=== PATIENT | male | born 1955 | race Caucasian/White ===

== ENCOUNTER → 2016-08-10 | Day surgery (SDC) | payer BC ==
[2016-08-02 09:48] VITALS: BMI 39.0
--- NOTE | 2016-08-02 10:11 | PAT Medication Instructions ---
Service Date Aug 02, 2016. Current Home Medication List Cholecalciferol (Vitamin D 1000 Unit), 1,000 INTER.UNIT PO QAM Doxazosin Mesylate (Doxazosin Mesylate), 8 MG PO QPM Ferrous Sulfate (Iron Supplement), 1 TAB PO HS Hydroxyzine Pamoate (Vistaril), 25 MG PO HS Omeprazole (Prilosec), 20 MG PO QAM Paroxetine (Paxil), 20 MG PO QAM Medication Instructions For Your Scheduled Surgery - Hold the following medications the morning of surgery: Cholecalciferol (Vitamin D 1000 Unit), 1,000 INTER.UNIT PO QAM - Take the following medications the morning of surgery with a sip of water OTHERWISE NOTHING TO EAT OR DRINK AFTER MIDNIGHT: Omeprazole (Prilosec), 20 MG PO QAM Paroxetine (Paxil), 20 MG PO QAM - Take the following medications as scheduled the night before surgery: Doxazosin Mesylate (Doxazosin Mesylate), 8 MG PO QPM Ferrous Sulfate (Iron Supplement), 1 TAB PO HS Hydroxyzine Pamoate (Vistaril), 25 MG PO HS If you have any questions please call us at [phone] (Trudi Rodrigues PA-C) or [phone] or [phone]
[2016-08-02 10:41] LABS: BASO % 0.6 %; BASO ABS # 0.03 K/uL (0-0.2); COMPLETE YES; EOS % 7.7 %; HEMATOCRIT 39.5 % (42-52); IG% 0.4 %; LYMPH ABS # 1.35 K/uL (1.2-3.4); MEAN CELL VOLUME 89.4 fL (80-100); MEAN CORPUSCULAR HEMOGLOBIN 30.5 pg (25-34); MEAN CORPUSCULAR HGB CONC 34.2 g/dl (32-36); MEAN PLATELET VOLUME 9.7 fL (7.4-10.4); MONO % 13.1 %; NEUT % 50.2 %; PLATELET COUNT 207 K/uL (130-400); RED BLOOD COUNT 4.42 M/uL (4.7-6.1); WHITE BLOOD COUNT 4.82 K/uL (4.8-10.8)
[2016-08-02 10:49] LABS: PROTHROMBIN TIME (PATIENT) 10.2 SECONDS (9.0-12.0)
[2016-08-02 11:26] LABS: BUN/CREATININE RATIO 15.6 (10-20); CALCIUM 9.7 mg/dl (8.5-10.1); CREATININE 1.6 mg/dl (0.60-1.40); POTASSIUM 4.4 mmol/L (3.5-5.1)
[~2016-08-10] VITALS: Ht 182.9 cm; Wt 131.0 kg
[~2016-08-10] MED LIST: ATROPINE SULFATE 0.1 MG/ML 5ML SYR IV PRN; BUPIVACAINE/EPINEPHRINE 0.5% MPF 1:200,000 30 ML VIAL INJ ONE; CEFAZOLIN 3000 MG/65 ML D5W IV SCH; CHOL100027 PO; DEXAMETHASONE SOD INJ 4 MG/ML VIAL ONE; DOXA-10 PO; EpHEDrine SULFATE INJ 50 MG/ML AMP IV PRN; EpHEDrine SULFATE INJ 50 MG/ML AMP ONE; FENTANYL CITRATE INJ 50 MCG/1 ML 2 ML VIAL ONE; FERR325T51 PO; HEPARIN SOD 5000 UNIT/0.5 ML CARP SQ SCH; HYDR-5688 PO; HYDR1CAP85 PO; HYDROCODONE/ACETAMOPHEN 5/325MG TAB PO PRN; IBUPROFEN 600 MG TAB PO PRN; KETOROLAC TROMETHAMINE 30 MG/ML VIAL IV. PRN; KETOROLAC TROMETHAMINE 30 MG/ML VIAL ONE; LABETALOL HCL IV 5 MG/ML 20ML IV PRN; LABETALOL HCL IV 5 MG/ML 20ML ONE; LACTATED RINGER'S 1000ML 1,000 ML IV SCH; LIDOCAINE HCL 2% 2 ML VIAL (20MG/ML) ONE; MIDAZOLAM HCL 1 MG/ML 2ML VIAL ONE; MoRPHine SULFATE 10 MG/ML CARP/VIAL IV PRN; MoRPHine SULFATE 4 MG/ML 1 ML CARP\\VIAL IV PRN; NURSING VERBAL MED ORDER ONE; ONDANSETRON INJ 2 MG/ML 2 ML VIAL IV PRN; ONDANSETRON INJ 2 MG/ML 2 ML VIAL ONE; PARO1TAB27 PO; PHENYLEPHRINE 100MCG/ML 5ML SYR ONE; PRLSR20 PO; PROPOFOL IV EMULSION 10 MG/ML 20 ML VIAL IV ONE; SODIUM CHLORIDE 0.9% 1000ML 1,000 ML IV SCH
[2016-08-10 10:03] VITALS: BP 160/89; PULSE 77; TEMP 36.7; O2SAT 96; Ht 182.9 cm; Wt 131.0 kg
--- NOTE | 2016-08-10 11:22 | History & Physical Bridge Note ---
H&P Re-Evaluation Bridge Note: I have examined the patient, reviewed the History & Physical and in the interval since the performance of the History & Physical I have noted the following changes of clinical significance: No changes noted
--- NOTE | 2016-08-10 11:25 | Discharge Instructions ---
Discharge Instructions Admission Reason for Admission: Left Inguinal Hernia Discharge Discharge Diagnosis / Problem: left inguinal hernia Discharge Goals Goal(s): Decrease discomfort, Improve function Activity Recommendations Activity Limitations: as noted below Lifting Limitations: no more than 10 pounds Exercise/Sports Limitations: until after follow-up appointment May Resume Sexual Activity: after follow-up appointment Shower/Bathe: tomorrow . Instructions / Follow-Up Instructions / Follow-Up f/u Dr. Silvestre 1-2 weeks. Current Hospital Diet Patient's current hospital diet: Discharge Diet Recommended Diet: Regular Diet Pending Studies Studies pending at discharge: no Medical Emergencies . Who to Call and When: Medical Emergencies: If at any time you feel your situation is an emergency, please call 911 immediately. . Non-Emergent Contact Non-Emergency issues call your: Primary Care Provider, Surgeon Call Non-Emergent contact if: temperature is above 101, wound has increased drainage, wound has increased redness, wound has increased pain . "Provider Documentation" section prepared by Demond Silvestre. VTE Core Measure Inpt VTE Proph given/why not?: Unfractionated heparin SQ
--- NOTE | 2016-08-10 13:06 | [facility] Operative Report ---
Operative Report Operative Date Aug 10, 2016. Pre-Operative Diagnosis Left Inguinal Hernia Post-Operative Diagnosis indirect left inguinal hernia Surgeon Dr Silvestre Findings indirect left inguinal hernia Specimens None Complication(s) None Disposition Recovery Room / PACU I attest to the content of the Intraoperative Record and any orders documented therein. Any exceptions are noted below.
[2016-08-10] MEDS: FENTANYL CITRATE INJ 50 MCG/1 ML 2 ML VIAL IV PRN ×3 (13:16→13:26)
--- NOTE | 2016-08-10 13:24 | Anesthesiology Progress Note ---
Anesthesia Post Op Note Date & Time Aug 10, 2016 at 13:24 Vital Signs Pain Intensity: 0 Vital Signs Past 12 Hours Date Time Temp Pulse Resp B/P Pulse Ox O2 Delivery O2 Flow Rate FiO2 08/10/16 10:03 36.7 77 18 160/89 96 Room Air Notes Mental Status: alert / awake / arousable, participated in evaluation Pt Amnestic to Procedure: Yes Nausea / Vomiting: adequately controlled Pain: adequately controlled Airway Patency, RR, SpO2: stable & adequate BP & HR: stable & adequate Hydration State: stable & adequate Anesthetic Complications: no major complications apparent
--- NOTE | 2016-08-10 13:32 | OPERATIVE REPORT ---
DATE OF OPERATION: 08/10/2016 PREOPERATIVE DIAGNOSIS: Left inguinal hernia. POSTOPERATIVE DIAGNOSIS: Indirect left inguinal hernia. PROCEDURE: Open left inguinal hernia repair with mesh. SURGEON: Dr. Silvestre. ESTIMATED BLOOD LOSS: 10 mL. COMPLICATIONS: No immediate. ANESTHESIA: General with laryngeal mask airway. The patient tolerated the procedure well. OPERATION AND FINDINGS: OPERATIVE NOTE: After informed consent was obtained, the patient was taken to the operating suite and placed in supine position. After successful placement of laryngeal mask airway a Diallo catheter was placed and the left groin was shaved and sterilely prepped and draped in usual fashion. An inguinal incision was made in the left groin with a 10 blade scalpel. This was carried down through the soft tissue using electrocautery. The external oblique aponeurosis was skeletonized and opened with a fresh scalpel. Metzenbaum scissors were used to extend this incision distally through the external ring as well as for several centimeters proximally. Once in the inguinal canal, we used blunt dissection to separate the cord and cord structures from surrounding tissue. I was able to gently lift it off the pubes and place a [place] drain around it. We then began examining the cord and cord structures. There was a large chronic thickened hernia sac. We were able to use traction, counter traction as well as small amount of electrocautery to tease it away from the cord structures. Eventually we were able to get it the whole way down to its neck at the base of the cord. We were able to easily dunk it into the abdominal cavity where it stayed self reduced. There was no evidence of a direct hernia. No other abnormalities were seen. We thoroughly irrigated the wound. I used a piece of polypropylene pre-keyholed mesh as an onlay. It was secured distally to Stephan's ligament, laterally along the shelving portion of Poupart's ligament and medially along the midline abdominal musculature. The "arms" of the mesh were wrapped around behind the cord and cord structures and again secured to underlying muscle. All the sutures placed I used 0 Nurolon. The mesh hugged the cord structures, but did not impinge on them. There was adequate hemostasis at the end of the procedure. Marcaine was injected around the mesh to help with postoperative analgesia. Final irrigation was performed. The mesh was tension free. We then closed the external oblique aponeurosis with 2-0 Vicryl in a running fashion. Soft tissue was irrigated and closed using 3-0 Vicryl and 4-0 Monocryl. Some additional Marcaine was injected around the skin. Dermabond glue was used as a dressing. The patient was awakened, extubated, and transferred to recovery in stable condition. I attest to the content of the Intraoperative Record and any orders documented therein. Any exceptio ns are noted below.
[2016-08-10 13:55] VITALS: BP 126/76; PULSE 66; TEMP 36.5; O2SAT 95
[2016-08-10 14:25] VITALS: BP 136/87; PULSE 80; TEMP 36.5; O2SAT 94
[2016-08-10 14:55] VITALS: BP 127/82; PULSE 82; TEMP 36.4; O2SAT 93
== END | disposition home or self-care (01) ==
LOC: C.ACU 09:45
PROVIDERS: ATTEND Surgery
DX: K40.90 Unilateral inguinal hernia, without obstruction or gangrene, not specified as recurrent (principal); K21.9 Gastro-esophageal reflux disease without esophagitis; N17.9 Acute kidney failure, unspecified; D64.9 Anemia, unspecified; L57.0 Actinic keratosis; G56.01 Carpal tunnel syndrome, right upper limb; N18.3 Chronic kidney disease, stage 3 (moderate); F32.9 Major depressive disorder, single episode, unspecified; I10 Essential (primary) hypertension; E66.9 Obesity, unspecified; E55.9 Vitamin D deficiency, unspecified; N31.8 Other neuromuscular dysfunction of bladder; G56.81 Other specified mononeuropathies of right upper limb; I83.10 Varicose veins of unspecified lower extremity with inflammation

== ENCOUNTER 2017-05-02 11:47 | Emergency (ER) | payer BC, OTHER ==
[~2017-05-02] VITALS: Ht 182.9 cm; Wt 136.5 kg
[~2017-05-02 11:47] MED LIST changes: -ATROPINE SULFATE 0.1 MG/ML 5ML SYR IV PRN; -BUPIVACAINE/EPINEPHRINE 0.5% MPF 1:200,000 30 ML VIAL INJ ONE; -CEFAZOLIN 3000 MG/65 ML D5W IV SCH; -DEXAMETHASONE SOD INJ 4 MG/ML VIAL ONE; -EpHEDrine SULFATE INJ 50 MG/ML AMP IV PRN; -EpHEDrine SULFATE INJ 50 MG/ML AMP ONE; -FENTANYL CITRATE INJ 50 MCG/1 ML 2 ML VIAL ONE; -HEPARIN SOD 5000 UNIT/0.5 ML CARP SQ SCH; -HYDR-5688 PO; -HYDROCODONE/ACETAMOPHEN 5/325MG TAB PO PRN; -IBUPROFEN 600 MG TAB PO PRN; -KETOROLAC TROMETHAMINE 30 MG/ML VIAL IV. PRN; -KETOROLAC TROMETHAMINE 30 MG/ML VIAL ONE; -LABETALOL HCL IV 5 MG/ML 20ML IV PRN; -LABETALOL HCL IV 5 MG/ML 20ML ONE; -LACTATED RINGER'S 1000ML 1,000 ML IV SCH; -LIDOCAINE HCL 2% 2 ML VIAL (20MG/ML) ONE; -MIDAZOLAM HCL 1 MG/ML 2ML VIAL ONE; -MoRPHine SULFATE 10 MG/ML CARP/VIAL IV PRN; -MoRPHine SULFATE 4 MG/ML 1 ML CARP\\VIAL IV PRN; -NURSING VERBAL MED ORDER ONE; -ONDANSETRON INJ 2 MG/ML 2 ML VIAL IV PRN; -ONDANSETRON INJ 2 MG/ML 2 ML VIAL ONE; -PHENYLEPHRINE 100MCG/ML 5ML SYR ONE; -PROPOFOL IV EMULSION 10 MG/ML 20 ML VIAL IV ONE; -SODIUM CHLORIDE 0.9% 1000ML 1,000 ML IV SCH
[2017-05-02 11:52] VITALS: TEMP 37; Ht 182.9 cm; Wt 136.5 kg
--- NOTE | 2017-05-02 12:41 | DIAGNOSTIC IMAGING REPORT ---
R SHOULDER MIN 2 VIEWS ROUTINE CLINICAL HISTORY: 61 years-old Male presenting with Right shoulder pain. TECHNIQUE: Internal rotation, external rotation, and Grashey views of the right shoulder were obtained. COMPARISON: 10/12/2014. FINDINGS: Total right shoulder arthroplasty. No malalignment or subluxation. No fracture. Few osseous fragments likely relate to the presence of prior osteophytosis. Regional soft tissues otherwise normal. Acromioclavicular joint congruent. IMPRESSION: Expected postoperative appearance status post total right shoulder arthroplasty. Electronically signed by: Riccardo Sierra M.D. 05/02/2017 12:40 PM Dictated Date/Time: 05/02/2017 12:37 PM
--- NOTE | 2017-05-02 12:50 | EMERGENCY ROOM VISIT NOTE ---
History First contact with patient: 11:59 Chief Complaint: SHOULDER PAIN Stated Complaint: SHOULDER PAIN History of Present Illness The patient is a 61 year old male who presents to the Emergency Room via private vehicle with complaints of "right shoulder pain". The patient states that about one week ago, he was operating a push/pull start a lawnmower, and shortly thereafter developed right shoulder pain. He has a history of right shoulder surgery/prosthetic implantation in this region, which was performed 2 years ago. This has been persistent over the past week, and is worse with movements. He rates the pain as a 6/10. He denies chest pain and shortness of breath. Review of Systems A complete 6-point Review of Systems was discussed with the patient, with pertinent positives and negatives listed in the History of Present Illness. All remaining Review of Systems questions can be considered negative unless otherwise specified. Past Medical/Surgical History Surgical Problems: (1) History of right shoulder replacement Family History No pertinent family history Social History Smoking Status: Never Smoker Drug Use: none Marital Status: Housing Status: lives with family Occupation Status: employed Current/Historical Medications Scheduled Cholecalciferol (Vitamin D 1000 Unit), 1,000 INTER.UNIT PO QAM Doxazosin Mesylate (Doxazosin Mesylate), 8 MG PO QPM Ferrous Sulfate (Iron Supplement), 1 TAB PO HS Hydroxyzine Pamoate (Vistaril), 25 MG PO HS Omeprazole (Prilosec), 20 MG PO QAM Paroxetine (Paxil), 20 MG PO QAM Allergies Coded Allergies: Alprazolam (Verified Allergy, Unknown, hives, 05/02/17) Physical Exam Vital Signs Date Time Temp Pulse Resp B/P (MAP) Pulse Ox O2 Delivery O2 Flow Rate FiO2 05/02/17 12:16 88 16 146/102 98 Room Air 05/02/17 11:52 37.0 72 20 168/109 98 Room Air Physical Exam VITAL SIGNS - Vital signs and nursing notes were reviewed. Stable. Hypertensive. GENERAL -61-year-old male appearing his stated age who is in no acute distress. Communicates well with provider and answers questions appropriately. SKIN - Without rashes. No petechial rashes. HEAD - NC/AT. NECK - Neck with FROM. Non-tender to palpation in regard to the right trapezius muscle. LUNGS - Chest wall symmetric without accessory muscle use, intercostals retractions, or central cyanosis. Normal vesicular breath sounds CTA B/L. No wheezes, rales, or rhonchi appreciated. CARDIAC - RRR with S1/S2. No murmur, rubs, or gallops appreciated. EXTREMITIES - No clubbing or peripheral cyanosis. No pretibial edema present. There is no tenderness to palpation overlying the right shoulder. Crepitus noted with passive range of motion of the patient's right shoulder. Decreased range of motion with external and internal rotation. An abduction. Pain is reproducible with range of motion. He is neurovascularly intact in this region. +5/5 strength noted in UE/LE bilaterally. Medical Decision & Procedures ER Provider Diagnostic Interpretation: R SHOULDER MIN 2 VIEWS ROUTINE CLINICAL HISTORY: 61 years-old Male presenting with Right shoulder pain. TECHNIQUE: Internal rotation, external rotation, and Grashey views of the right shoulder were obtained. COMPARISON: 10/12/2014. FINDINGS: Total right shoulder arthroplasty. No malalignment or subluxation. No fracture. Few osseous fragments likely relate to the presence of prior osteophytosis. Regional soft tissues otherwise normal. Acromioclavicular joint congruent. IMPRESSION: Expected postoperative appearance status post total right shoulder arthroplasty. Electronically signed by: Riccardo Sierra M.D. 05/02/2017 12:40 PM Dictated Date/Time: 05/02/2017 12:37 PM Medical Decision Patient was seen and evaluated as above. He presents to us today with 1 week of right shoulder pain and crepitus of the right shoulder joint. This is prosthetic. There is no chest pain or shortness of breath. X-ray was obtained with results as above. He declined pain medication. Ice packs were given. X- rays negative for acute process. He was informed upon the results and notes that he will follow-up with his orthopedic surgeon. He is to utilize conservative management with the shoulder. He is to return with worsening. He was educated upon management, educated upon worrisome symptoms in which to return, had questions answered prior to discharge, and was discharged home in good condition. He is to follow with his family doctor to have the blood pressure rechecked as it was elevated today. In the evaluation and treatment of this patient, the following differential diagnoses were considered: Shoulder Contusion, Shoulder Fracture, Shoulder Dislocation, Thoracic Outlet Syndrome, Adhesive Capsulitis, Rotator Cuff Tear, Proximal Clavicle Head Fracture, Apical Pneumonia, Pneumothorax, Hemothorax, or TB. Impression Primary Impression: Shoulder pain, right Departure Information Dispostion Home / Self-Care Condition GOOD Referrals Juan Carlos Vital M.D. (PCP) Patient Instructions My [facility] Additional Instructions You have been treated in the Emergency Department for Shoulder Pain. If this is a recent injury (<24 hrs), ice can be applied to the area of pain for the first 3 days to help decrease pain and inflammation. Please call your orthopedic surgeon to ensure that you follow-up in the near future. You may use your sling periodically for comfort but be careful of frozen shoulder as we discussed. Please return with any new/concerning symptoms. Return to the Emergency Department if your current symptoms worsen despite treatment course outlined above, or if you develop any of the following symptoms : intractable pain despite aforementioned treatment course or new onset of numbness or tingling of the arm.
[2017-05-02 13:05] VITALS: BP 146/98; PULSE 67; O2SAT 96
== END 2017-05-02 13:07 | disposition home or self-care (01) ==
LOC: C.EDB 11:48 → C.EDD 13:07
DX: M25.511 Pain in right shoulder (principal); Z96.698 Presence of other orthopedic joint implants; Z79.899 Other long term (current) drug therapy

== ENCOUNTER → 2017-05-30 | Outpatient (CLI) | payer BC ==
--- NOTE | 2017-05-30 11:59 | DIAGNOSTIC IMAGING REPORT ---
R VENOUS DOPP LOWER EXT UNILAT CLINICAL HISTORY: RIGHT LEG PAIN AND SWELLING pain. Edema. TECHNIQUE: Venous Doppler COMPARISON STUDY: None FINDINGS: Study is negative for deep venous thrombosis. Superficial thrombophlebitis is noted within several superficial vessels of the right mid thigh. IMPRESSION: 1. Study is negative for deep venous process. 2. Focal superficial thrombophlebitis right mid thigh. The above report was generated using voice recognition software. It may contain grammatical, syntax or spelling errors. Electronically signed by: Terence Anne M.D. 05/30/2017 11:58 AM Dictated Date/Time: 05/30/2017 11:57 AM
== END | disposition home or self-care (01) ==
LOC: C.ULTR 10:43
PROVIDERS: ATTEND Family Medicine
DX: I80.01 Phlebitis and thrombophlebitis of superficial vessels of right lower extremity (principal)

== ENCOUNTER → 2017-06-12 | Outpatient (CLI) | payer BC ==
[~2017-06-12] MED LIST changes: +ACET-1256 PO; +ASPI81TA28 PO; +ATR25 PO; +CEFA500C PO; +CHOL20007 PO; +DOCU100C31 PO; +GABA1CAP4 PO; +HYDR2TAB2 PO; +OMEP20CA9 PO; +PXL20 PO; +RIVA1TAB4 PO; +SENN-61 PO; +XRL15 PO
== END | disposition home or self-care (01) ==
LOC: C.CPL 10:50
PROVIDERS: ATTEND Physician Assistant
DX: Z01.818 Encounter for other preprocedural examination (principal)

== ENCOUNTER 2017-06-27 14:38 | Inpatient (IN) | payer BC ==
[~2017-06-27] VITALS: Ht 182.9 cm; Wt 140.1 kg
[~2017-06-27 14:38] MED LIST changes: -ACET-1256 PO; -ASPI81TA28 PO; -ATR25 PO; -CEFA500C PO; -CHOL20007 PO; -DOCU100C31 PO; -GABA1CAP4 PO; -HYDR2TAB2 PO; -OMEP20CA9 PO; -PXL20 PO; -RIVA1TAB4 PO; -SENN-61 PO; -XRL15 PO
--- NOTE | 2017-06-27 15:17 | EMERGENCY ROOM VISIT NOTE ---
History Report prepared by Gabino: Fred Mack Under the Supervision of: Dr. Parish Fierro M.D. First contact with patient: 15:00 Chief Complaint: SHORTNESS OF BREATH Stated Complaint: SOB, S/P SURGERY History of Present Illness The patient is a 61 year old male who presents to the Emergency Room with complaints of SOB that started 2 days ago. He had a total shoulder replacement surgery 2 days ago ([facility], [place], [place] with Dr. Cain Walter). Of note, he has a pain pump on his right shoulder. He has been unable to walk without feeling short of breath after being discharged from the hospital. He reports his shoulder pain has improved from yesterday. He denies chest pain and swelling in his legs. He has no history of COPD, asthma, and sleep apnea but does have stage 3 kidney disease. He also has a surgical history of hip replacement, hernia repair, shoulder replacement. Source of History: patient, spouse/significant other Onset: 2 days ago Position: shoulder (right) Quality: other (shortness of breath) Timing: constant Modifying Factors (Worsening): movement (walking) Associated Symptoms: + SOB, No chest pain Note: No swelling in lower extremities Review of Systems See HPI for pertinent positives and negatives. A total of ten systems were reviewed and were otherwise negative. Past Medical & Surgical Medical Problems: (1) acute melva PE Surgical Problems: (1) History of right shoulder replacement Family History No pertinent family history Social History Smoking Status: Never Smoker Drug Use: none Marital Status: Housing Status: lives with family Occupation Status: employed Current/Historical Medications Scheduled Aspirin (Aspirin Ec), 81 MG PO DAILY Cefadroxil (Cefadroxil), 500 MG PO Q12 Cholecalciferol (Vitamin D3), 2,000 INTER.UNIT PO DAILY Doxazosin Mesylate (Doxazosin Mesylate), 8 MG PO HS Gabapentin (Gabapentin), 300 MG PO Q12 Hydroxyzine HCl (Hydroxyzine HCl), 25 MG PO HS Omeprazole (Prilosec), 20 MG PO DAILY Paroxetine (Paroxetine HCl), 20 MG PO DAILY Scheduled PRN Acetaminophen (Tylenol), 1,000 MG PO Q8 PRN for Pain Docusate Sodium (Docusate Sodium), 100 MG PO BID PRN for Constipation Hydromorphone Hcl (Hydromorphone Hcl), 2-4 MG PO Q6H PRN for Moderate/Severe Pain Senna (Senokot), 8.6 MG PO Q12 PRN for Constipation Allergies Coded Allergies: Alprazolam (Verified Allergy, Unknown, hives, 05/02/17) Physical Exam Vital Signs Date Time Temp Pulse Resp B/P (MAP) Pulse Ox O2 Delivery O2 Flow Rate FiO2 06/27/17 18:25 114 18 182/107 94 Nasal Cannula 2.0 06/27/17 16:25 101 20 118/80 93 Nasal Cannula 2.0 06/27/17 16:19 104 06/27/17 15:38 92 Room Air 06/27/17 15:00 93 Room Air 06/27/17 14:42 37.1 128 20 128/86 93 Room Air Physical Exam GENERAL: Awake, alert, dyspneic-appearing, in no distress HENT: Normocephalic, atraumatic. Oropharynx unremarkable. EYES: Normal conjunctiva. Sclera non-icteric. NECK: Supple. No nuchal rigidity. FROM. No JVD. RESPIRATORY: Clear to auscultation. CARDIAC: Sinus tachycardiac, normal rhythm. Extremities warm and well perfused. Pulses equal. ABDOMEN: Obese, soft, non-distended. No tenderness to palpation. No rebound or guarding. No masses. RECTAL: Deferred. MUSCULOSKELETAL: Chest examination reveals no tenderness. The back is symmetrical on inspection without obvious abnormality. There is no CVA tenderness to palpation. No joint edema. Right total shoulder dressing is clean , dry, and intact. Fusion pump in right lateral neck area is clean, dry, and in tact LOWER EXTREMITIES: Calves are equal size bilaterally and non-tender. Scant edema. No discoloration. NEURO: Normal sensorium. No sensory or motor deficits noted. SKIN: No rash or jaundice noted. Medical Decision & Procedures ER Provider Diagnostic Interpretation: Radiology results as stated below per my review and radiologist interpretation: CHEST ONE VIEW PORTABLE CLINICAL HISTORY: Atypical chest pain COMPARISON STUDY: 05/06/2013 FINDINGS: The heart is the upper limits of normal in size. There is no failure. There are linear opacities the left lung base likely representing subsegmental atelectasis. There are right perihilar airspace opacities, atelectatic versus infectious/inflammatory. Clinical and radiographic follow-up is recommended.[ IMPRESSION: 1. No evidence of failure 2. Interval development of right perihilar airspace opacities, atelectatic versus infectious/inflammatory. Clinical and radiographic follow-up is recommended Electronically signed by: Yash Walker M.D. 06/27/2017 3:[address] ANGIOGRAM OF THE CHEST CLINICAL HISTORY: Elevated d-dimer. Recent surgery. COMPARISON STUDY: Chest x-ray dated 06/27/2017. TECHNIQUE: Following the IV administration of 93 cc of Optiray 320, CT angiogram of the chest was performed from the upper abdomen to the thoracic inlet utilizing the pulmonary embolus protocol. Images are reviewed in the axial, sagittal, and coronal planes. 3-D MIPS images are created and assessed. IV contrast was administered without complication. A dose lowering technique was utilized adhering to the principles of ALARA. The examination is degraded by motion artifact, as well as by streak artifact from the right arm which could not be elevated above the chest. FINDINGS: Thyroid: Imaged portions of the thyroid gland are normal in size and attenuation. Thoracic aorta: The thoracic aorta is normal in caliber and demonstrates standard 3-vessel arch anatomy. No dissection is seen. Pulmonary vasculature: The pulmonary trunk is normal in caliber. There our filling defects identified within the right middle lobe pulmonary artery extending into the segmental and subsegmental branches. This is best seen on image #197. There are also filling defects identified within segmental and subsegmental branches of the left lower lobe pulmonary artery. These are consistent with pulmonary emboli. Heart: The heart is enlarged and without pericardial effusion. The coronary arteries are densely calcified. Lungs and pleural spaces: Evaluation of lung parenchyma is degraded by motion artifact. Emphysema is suspected. There is segmental atelectasis identified in the right lower lobe. A small right pleural effusion is noted. There is left basilar atelectasis related to the large hiatal hernia. No airspace consolidation is seen typical for pneumonia a calcified granuloma seen in the right lower lobe. The trachea is patent. Mediastinum: There is no mediastinal lymphadenopathy. Madison: Clear. Axillae: There is no axillary lymphadenopathy. Upper abdomen: A nonobstructing calculus is identified in the left kidney. There is a moderate to large hiatal hernia. Skeletal structures: The skeletal structures are osteopenic. Moderate to advanced degenerative change is present throughout the thoracic spine. No lytic or blastic bony lesions are seen. A right shoulder arthroplasty is in place. Soft tissue edema, fluid, and foci of subcutaneous gas overlying the arthroplasty are likely related to recent surgery. Advanced arthritic changes also seen in the left shoulder. IMPRESSION: 1. Significantly motion degraded examination. 2. Bilateral pulmonary emboli as above. 3. Segmental atelectasis is seen at the right lung base and there is a small right pleural effusion. Correlate clinically for evidence of superimposed pneumonia. 4. Moderate to large hiatal hernia. 5. A right shoulder arthroplasty is in place. Simultaneous gas, soft tissue edema, and fluid around the arthroplasty in the right shoulder are likely related to recent surgery. Clinical correlation will be required. 6. Nonobstructing left renal calculus. 7. Additional findings as above. Electronically signed by: Amador Cid M.D. 06/27/2017 5:30 PM Laboratory Results 06/27/17 15:35 Red Blood Count 4.12, Mean Corpuscular Volume 90.5, Mean Corpuscular Hemoglobin 30.1, Mean Corpuscular Hemoglobin Concent 33.2, Mean Platelet Volume 9.5, Neutrophils (%) (Auto) 70.7, Lymphocytes (%) (Auto) 16.2, Monocytes (%) (Auto) 9.0, Eosinophils (%) (Auto) 3.5, Basophils (%) (Auto) 0.3, Neutrophils # (Auto) 5.64, Lymphocytes # (Auto) 1.29, Monocytes # (Auto) 0.72, Eosinophils # (Auto) 0.28, Basophils # (Auto) 0.02 06/27/17 15:35 Test 06/27/17 15:35 06/27/17 18:49 White Blood Count 7.97 K/uL (4.8-10.8) Red Blood Count 4.12 M/uL (4.7-6.1) Hemoglobin 12.4 g/dL (14.0-18.0) Hematocrit 37.3 % (42-52) Mean Corpuscular Volume 90.5 fL (80-100) Mean Corpuscular Hemoglobin 30.1 pg (25-34) Mean Corpuscular Hemoglobin Concent 33.2 g/dl (32-36) Platelet Count 168 K/uL (130-400) Mean Platelet Volume 9.5 fL (7.4-10.4) Neutrophils (%) (Auto) 70.7 % Lymphocytes (%) (Auto) 16.2 % Monocytes (%) (Auto) 9.0 % Eosinophils (%) (Auto) 3.5 % Basophils (%) (Auto) 0.3 % Neutrophils # (Auto) 5.64 K/uL (1.4-6.5) Lymphocytes # (Auto) 1.29 K/uL (1.2-3.4) Monocytes # (Auto) 0.72 K/uL (0.11-0.59) Eosinophils # (Auto) 0.28 K/uL (0-0.5) Basophils # (Auto) 0.02 K/uL (0-0.2) RDW Standard Deviation 46.2 fL (36.4-46.3) RDW Coefficient of Variation 14.0 % (11.5-14.5) Immature Granulocyte % (Auto) 0.3 % Immature Granulocyte # (Auto) 0.02 K/uL (0.00-0.02) D-Dimer 1840 ug/L FEU (0-500) Anion Gap 7.0 mmol/L (3-11) Est Creatinine Clear Calc Drug Dose 63.8 ml/min Estimated GFR () 47.7 Estimated GFR (Non- 41.1 BUN/Creatinine Ratio 10.7 (10-20) Calcium Level 8.9 mg/dl (8.5-10.1) Total Bilirubin 0.4 mg/dl (0.2-1) Direct Bilirubin 0.1 mg/dl (0-0.2) Aspartate Amino Transf (AST/SGOT) 32 U/L (15-37) Alanine Aminotransferase (ALT/SGPT) 29 U/L (12-78) Alkaline Phosphatase 68 U/L (45-117) Troponin I < 0.015 ng/ml (0-0.045) Pro-B-Type Natriuretic Peptide 520 pg/ml (0-900) Total Protein 7.1 gm/dl (6.4-8.2) Albumin 2.8 gm/dl (3.4-5.0) Lipase 141 U/L (73-393) Hepatitis C Antibody Screen NEG (NEG) Laboratory results reviewed by me Medications Administered Medications (Trade) Dose Ordered Sig/Esmer Route Start Time Stop Time Status Last Admin Dose Admin Sodium Chloride 1,000 ml @ 250 mls/hr Q4H STAT IV 06/27/17 16:12 06/27/17 19:33 DC 06/27/17 16:25 250 MLS/HR Heparin Sodium (Porcine) (Heparin Sq 5000 Unit/0.5ml) 10,000 unit STK-MED ONCE .ROUTE 06/27/17 18:23 06/27/17 18:24 DC 06/27/17 18:52 8,000 UNIT Hydromorphone HCl (Dilaudid Tab) 2 mg NOW STAT PO 06/27/17 18:30 06/27/17 18:31 DC 06/27/17 18:43 2 MG Hydromorphone HCl (Dilaudid Tab) 2 mg Q6H PRN PO 06/27/17 18:30 07/11/17 18:29 06/27/17 23:48 2 MG Heparin Sodium/ Dextrose 500 ml @ 37 mls/hr [id number] PRN IV 06/27/17 18:45 07/27/17 18:44 06/27/17 18:52 37 MLS/HR ECG Rate (beats per minute): 115 Rhythm: sinus tachycardia, other (normal axis) Findings: other (no signs of acute ischemica ) ED Course 1612: I spoke about a D Dimer. 162: I updated the patient on their status. 174: I updated the patient on his PE. 174: I spoke with Dr. Ronan Gonzalez about the patient's findings and discussed his management course. Medical Decision I reviewed the patient's past medical history, medications, and the nursing notes as described above. The patient's presentation and history were concerning for pneumonia, bronchitis , PE. ACS, CHF, deconditioning, and atelectasis. The patient is a 61-year-old gentleman who presents emergency Department with persistent dyspnea after having a total shoulder done discharged on Sunday for history of present illness. While the patient is well-appearing, afebrile, heart rate 120s but vital signs otherwise stable. Lungs are clear to auscultation. Patient have an infusion pump to the right lateral neck with that is clean dry and intact. Shoulder dressing is also unremarkable. D-dimer was positive. Cr. 1.7 at baseline. Labs otherwise unremarkable including wbc, Trop, BNP wnl. Thus given the patient's tachycardia and dyspnea CT PE study is reasonable to obtain precise diagnosis. I discussed this with the patient given his history of CKD with a creatinine 1.7 and that I believe the benefits outweigh the risks at this time. Patient was agreeable to proceed with the CT scan. CT demonstrated bilateral subsegmental pulmonary emboli. Given the patient's CKD and recent surgery will treat with heparin gtt at this time. Case was discussed with Dr. Gonzalez, and [facility] hospitalist, who reported the patient for further management. Consults Time Called: 1745 Consulting Physician: Dr. Ronan Gonzalez ([facility]) Returned Call: [address] Gonzalez and discussed the patient's findings and management course. Impression Primary Impression: Pulmonary embolism Critical Care I have personally spent greater than 35 minutes of critical care time in the direct management of this patient. This includes bedside care, interpretation of diagnostic studies, and testing, discussion with consultants, patient, and family members, and other required patient management activities. This 35 minutes is in excess of all separately billable procedures. Scribe Attestation The scribe's documentation has been prepared under my direction and personally reviewed by me in its entirety. I confirm that the note above accurately reflects all work, treatment, procedures, and medical decision making performed by me. Departure Information Referrals Juan Carlos Vital M.D. (PCP) Patient Instructions My [facility]
[2017-06-27] MEDS ORDERED: GABA1CAP4 PO (15:35)
[2017-06-27] MEDS ORDERED: OMEP20CA9 PO (15:35)
[2017-06-27] MEDS ORDERED: ASPI81TA28 PO (15:35)
[2017-06-27] MEDS ORDERED: DOCU100C31 PO (15:35)
[2017-06-27] MEDS ORDERED: SENN-61 PO (15:35)
[2017-06-27] MEDS ORDERED: HYDR2TAB2 PO (15:35)
[2017-06-27] MEDS ORDERED: ATR25 PO (15:35)
[2017-06-27] MEDS ORDERED: PXL20 PO (15:35)
[2017-06-27] MEDS ORDERED: CEFA500C PO (15:35)
[2017-06-27] MEDS ORDERED: CHOL20007 PO (15:35)
[2017-06-27] MEDS ORDERED: ACET-1256 PO (15:35)
--- NOTE | 2017-06-27 15:35 | DIAGNOSTIC IMAGING REPORT ---
CHEST ONE VIEW PORTABLE CLINICAL HISTORY: Atypical chest pain COMPARISON STUDY: 05/06/2013 FINDINGS: The heart is the upper limits of normal in size. There is no failure. There are linear opacities the left lung base likely representing subsegmental atelectasis. There are right perihilar airspace opacities, atelectatic versus infectious/inflammatory. Clinical and radiographic follow-up is recommended.[ IMPRESSION: 1. No evidence of failure 2. Interval development of right perihilar airspace opacities, atelectatic versus infectious/inflammatory. Clinical and radiographic follow-up is recommended Electronically signed by: Yash Walker M.D. 06/27/2017 3:34 PM Dictated Date/Time: 06/27/2017 3:32 PM
[2017-06-27 15:50] LABS: BASO % 0.3 %; BASO ABS # 0.02 K/uL (0-0.2); COMPLETE YES; EOS % 3.5 %; HEMATOCRIT 37.3 % (42-52); IG% 0.3 %; LYMPH % 16.2 %; LYMPH ABS # 1.29 K/uL (1.2-3.4); MEAN CELL VOLUME 90.5 fL (80-100); MEAN CORPUSCULAR HEMOGLOBIN 30.1 pg (25-34); MEAN CORPUSCULAR HGB CONC 33.2 g/dl (32-36); MEAN PLATELET VOLUME 9.5 fL (7.4-10.4); NEUT % 70.7 %; PLATELET COUNT 168 K/uL (130-400); RED BLOOD COUNT 4.12 M/uL (4.7-6.1); WHITE BLOOD COUNT 7.97 K/uL (4.8-10.8)
[2017-06-27 16:09] LABS: ALT/SGPT 29 U/L (12-78); BLOOD UREA NITROGEN 19 mg/dl (7-18); BUN/CREATININE RATIO 10.7 (10-20); CALCIUM 8.9 mg/dl (8.5-10.1); CARBON DIOXIDE 26 mmol/L (21-32); CHLORIDE 105 mmol/L (98-107); CREATININE 1.75 mg/dl (0.60-1.40); GLUCOSE 166 mg/dl (70-99); POTASSIUM 3.8 mmol/L (3.5-5.1); SODIUM 137 mmol/L (136-145)
[2017-06-27] MEDS ORDERED: SODIUM CHLORIDE 0.9% 1000ML 1,000 ML IV STA (16:12)
[2017-06-27 16:14] LABS: ALKALINE PHOSPHATASE 68 U/L (45-117); AST/SGOT 32 U/L (15-37)
[2017-06-27] MEDS ORDERED: OPTIRAY 320 IV PRN (16:30)
--- NOTE | 2017-06-27 17:31 | DIAGNOSTIC IMAGING REPORT ---
CT ANGIOGRAM OF THE CHEST CLINICAL HISTORY: Elevated d-dimer. Recent surgery. COMPARISON STUDY: Chest x-ray dated 06/27/2017. TECHNIQUE: Following the IV administration of 93 cc of Optiray 320, CT angiogram of the chest was performed from the upper abdomen to the thoracic inlet utilizing the pulmonary embolus protocol. Images are reviewed in the axial, sagittal, and coronal planes. 3-D MIPS images are created and assessed. IV contrast was administered without complication. A dose lowering technique was utilized adhering to the principles of ALARA. The examination is degraded by motion artifact, as well as by streak artifact from the right arm which could not be elevated above the chest. FINDINGS: Thyroid: Imaged portions of the thyroid gland are normal in size and attenuation. Thoracic aorta: The thoracic aorta is normal in caliber and demonstrates standard 3-vessel arch anatomy. No dissection is seen. Pulmonary vasculature: The pulmonary trunk is normal in caliber. There our filling defects identified within the right middle lobe pulmonary artery extending into the segmental and subsegmental branches. This is best seen on image #197. There are also filling defects identified within segmental and subsegmental branches of the left lower lobe pulmonary artery. These are consistent with pulmonary emboli. Heart: The heart is enlarged and without pericardial effusion. The coronary arteries are densely calcified. Lungs and pleural spaces: Evaluation of lung parenchyma is degraded by motion artifact. Emphysema is suspected. There is segmental atelectasis identified in the right lower lobe. A small right pleural effusion is noted. There is left basilar atelectasis related to the large hiatal hernia. No airspace consolidation is seen typical for pneumonia a calcified granuloma seen in the right lower lobe. The trachea is patent. Mediastinum: There is no mediastinal lymphadenopathy. Madison: Clear. Axillae: There is no axillary lymphadenopathy. Upper abdomen: A nonobstructing calculus is identified in the left kidney. There is a moderate to large hiatal hernia. Skeletal structures: The skeletal structures are osteopenic. Moderate to advanced degenerative change is present throughout the thoracic spine. No lytic or blastic bony lesions are seen. A right shoulder arthroplasty is in place. Soft tissue edema, fluid, and foci of subcutaneous gas overlying the arthroplasty are likely related to recent surgery. Advanced arthritic changes also seen in the left shoulder. IMPRESSION: 1. Significantly motion degraded examination. 2. Bilateral pulmonary emboli as above. 3. Segmental atelectasis is seen at the right lung base and there is a small right pleural effusion. Correlate clinically for evidence of superimposed pneumonia. 4. Moderate to large hiatal hernia. 5. A right shoulder arthroplasty is in place. Simultaneous gas, soft tissue edema, and fluid around the arthroplasty in the right shoulder are likely related to recent surgery. Clinical correlation will be required. 6. Nonobstructing left renal calculus. 7. Additional findings as above. Electronically signed by: Amador Cid M.D. 06/27/2017 5:30 PM Dictated Date/Time: 06/27/2017 5:19 PM
[2017-06-27] MEDS ORDERED: HEPARIN 25000 UNIT/500 ML D5W ONE (18:20)
[2017-06-27] MEDS ORDERED: HEPARIN SOD 5000 UNIT/0.5 ML CARP ONE (18:23)
[2017-06-27 18:26] LABS: PARTIAL THROMBOPLASTIN RATIO 1.2
[2017-06-27] MEDS ORDERED: MAGNESIUM HYDROXIDE SUSP 30 ML UDC PO PRN (18:30)
[2017-06-27] MEDS ORDERED: NURSING VERBAL MED ORDER ONE (18:30)
[2017-06-27] MEDS ORDERED: ZOLPIDEM TARTRATE 5 MG TAB PO PRN (18:30)
[2017-06-27] MEDS ORDERED: POLYETHYLENE (MIRALAX) 17 GM PACK PO PRN (18:30)
[2017-06-27] MEDS ORDERED: HYDROmorphone HCL 2 MG TAB PO STA (18:30)
[2017-06-27] MEDS ORDERED: ONDANSETRON INJ 2 MG/ML 2 ML VIAL IV PRN (18:30)
[2017-06-27] MEDS ORDERED: DOCUSATE SODIUM 100 MG CAP PO PRN (18:30)
[2017-06-27] MEDS ORDERED: ALUMINUM/MAGNESIUM/SIMETH (MAALOX MAX) 30 ML UDC PO PRN (18:30)
[2017-06-27] MEDS ORDERED: SENNA 8.6 MG TAB PO PRN (18:30)
[2017-06-27] MEDS ORDERED: PANTOprazole SOD 40 MG TAB PO STA ×2 (18:42→19:38)
[2017-06-27] MEDS: HEPARIN 25,000 UNIT/500ML D5W 500 ML IV PRN (18:52)
--- NOTE | 2017-06-27 18:56 | History and Physical ---
History & Physical Date of Service Jun 27, 2017. History & Physical melva pe, [id number]
[2017-06-27] MEDS ORDERED: HydrALAZINE HCL 20 MG/ML VIAL IV. PRN (19:00)
[2017-06-27 19:49] VITALS: BP 130/86; PULSE 115; TEMP 37.3; O2SAT 94; Ht 182.9 cm; Wt 140.1 kg
--- NOTE | 2017-06-27 20:12 | HISTORY & PHYSICAL EXAMINATION ---
DATE OF ADMISSION: 06/27/2017 This is a level 3 inpatient admission, 35 minutes. CHIEF COMPLAINT: Worsening difficulty breathing and elevated D-dimer. HISTORY OF PRESENT ILLNESS: The patient is a 61-year-old white male with a significant past medical history of chronic kidney disease, BPH, GERD, anxiety and recent right shoulder surgery, coming to the hospital Emergency Department because of the above chief complaint. The patient reports shortness of breath, which is getting worse after the right shoulder replacement 2 days ago. The procedure was done in [facility] in [place] with Dr. Cain Helton. After the procedure, the patient was not able to be up and ambulate well. Most of the time he was in bed. He had significant right shoulder pain. There was a pain pump in the right shoulder which was placed when he was in [facility], but the pain pump is supposed to be removed by family tomorrow per instruction. The patient was given medication of cefadroxil from 06/26/2017 totally supposed to be for 14 days. In the Emergency Room, patient had evaluation of chest CT which shows bilateral PE. When I interviewed with the patient, he is very uncomfortable, some labored breathing, but respiratory rate at around 24. He reports some cough but nonproductive, denied hemoptysis. Denied palpitation. Denied lower extremity swelling or calf pain. Denied fever or chills. Denied nausea, vomiting, abdominal pain, diarrhea, or constipation. Denied dysuria, urgency and frequencies. Denies skin rashes. The pain is fairly controlled by his pain pump. At the same time he is taking Dilaudid 2-4 mg p.o. q. 6 hour as well. ALLERGIES: ALLERGY TO ALPRAZOLAM. PAST MEDICAL HISTORY: Like I mentioned in the above which include; 1. Chronic kidney disease stage III. 2. Benign prostatic hypertrophy. 3. Gastroesophageal reflux disease. 4. Anxiety. 5. Recent right shoulder procedure. FAMILY HISTORY: Father has blood clot x1. SOCIAL HISTORY: Never smoked. Denied alcohol abuse disorder, denied illicit drug abuse. The patient is employed. Denied illicit drug abuse. Lives with family. MEDICATIONS: Taking at home include aspirin 81 mg p.o. daily, cefadroxil 500 mg p.o. q. 12 hours started on 06/26/2017 totally need to be on 14 days, vitamin D3 2000 international units p.o. daily, doxazosin 8 mg p.o. at bedtime, gabapentin 300 mg p.o. q. 12 hours, hydroxyzine 25 mg p.o. at bedtime, Prilosec 20 mg p.o. daily, paroxetine 20 mg p.o. daily. As needed medications include Tylenol 1000 mg p.o. q. 8 hours p.r.n. for the pain, docusate 100 mg p.o. b.i.d. p.r.n. for constipation, hydromorphone 2-4 mg p.o. q. 6 hours p.r.n. for moderate to severe pain, Senna 8.6 mg p.o. q. 12 hours p.r.n. for constipation. REVIEW OF SYSTEMS: Please see HPI, otherwise 14 points organ system review were negative. PHYSICAL EXAMINATION: VITAL SIGNS: Temperature is 37.7, pulse highest was up to 128, respiration rate 20, blood pressure 128/84, pulse ox was 93% in room air. GENERAL: The patient is a white male, morbid obesity, BMI was 41. Awake, alert and orientated. No acute distress. HEAD: Normocephalic. EYES: Pupils equal, round responds to light. EARS: Ear was normal. NOSE: Normal. MOUTH: Conjunctivae no injection. Sclerae were nonicterus. NECK: Supple. No rigidities. LUNGS: Decreased breathing sounds. There was no wheezing, rhonchi or crackles. HEART: Regular rhythm. Sinus tachycardia. EXTREMITIES: Lower extremities warm and well perfused. Calf was nontender. Right shoulder in sling. Local incision looks fairly good. There was a pain pump in left anterior shoulder. Bilateral upper arm pulse was symmetric and positive. There was no clubbing, no cyanosis. Normal range of motions in bilateral upper and lower extremities. NEUROLOGICAL EVALUATION: Cranial nerve II through XII was intact. There was no local deficits. IMAGING STUDIES: Chest x-ray portable, no evidence of failure. There was interval development of right perihilar airspace opacities. LABORATORY STUDIES: WBC 7.9, hemoglobin 12, platelet 168. BUN 19, creatinine 1.7. Blood glucose 166. Sodium 137, potassium 3.8, chloride 106, bicarbonate 26. The patient got 1 liter of IV fluid and went to the CAT scan. CT angio of the chest which shows bilateral PE. A moderate to large hiatal hernia and nonobstructing left renal calculus. ASSESSMENT: A 61-year-old white male with the condition, see below: 1. Acute bilateral pulmonary embolism. 2. Recent right shoulder surgery. 3. Chronic kidney disease stage III, had a CT of the chest with IV contrast. 4. History of benign prostatic hypertrophy. 5. Gastroesophageal reflux disease. 6. Anxiety. 7. Accelerated hypertension, blood pressure at 182/107. 8. Mild tachycardia. 9. Nonobstructed left renal calculus. 10. Morbid obesity. The patient has acute PE with recent right shoulder surgeries, likely from not ambulating well which caused bilateral PE. I will order bilateral upper and lower extremity Doppler ultrasound to rule out DVT, will give heparin drip and then medical team can further discuss with the options of the other oral anticoagulants with warfarin or NOAC. Because patient has family history of blood clot, I did order coagulopathy profile which will help for the decision of long-term need of anticoagulation or not. The patient has elevated blood glucose, I will check hemoglobin A1c. Has accelerated hypertension, we will give hydralazine. Very importantly, the patient has chronic CKD with creatinine of 1.75, GFR was 47. After IV contrast we need to monitor GFR closely. I will continue gentle IV fluid and tomorrow morning lab was ordered. The patient on home medications for BPH, GERD and anxiety, will be continued. Discussed with patient and family about the care plan. I answered all their questions for the antibiotic cefadroxil supposed to start on 06/26/2017 and totally need 14 days. The patient is discussed with pharmacy. The patient will use this medicine from home. DANETTE
[2017-06-27] MEDS ORDERED: GABAPENTIN 300 MG CAP PO SCH (21:00)
[2017-06-27] MEDS: SODIUM CHLORIDE 0.9% 1000ML 1,000 ML IV SCH (21:05)
[2017-06-27] MEDS: hydrOXYzine HCL 25 MG TAB PO SCH (21:06)
[2017-06-27] MEDS: DOXAZosin MESYLATE TAB 4 MG TAB PO SCH (21:06)
[2017-06-27] MEDS: CEFADROXIL 500 MG PO SCH (21:07)
[2017-06-27] MEDS: GABAPENTIN 300 MG CAP PO SCH (21:07)
[2017-06-27 23:31] VITALS: BP 154/101; PULSE 96; TEMP 36.5; O2SAT 96
[2017-06-27] MEDS: HYDROmorphone HCL 2 MG TAB PO PRN (23:48)
[2017-06-28 01:38] LABS: PARTIAL THROMBOPLASTIN RATIO 3.6
[2017-06-28 03:58] VITALS: BP 147/93; PULSE 84; TEMP 37.4; O2SAT 93
[2017-06-28] MEDS: HYDROmorphone HCL 2 MG TAB PO PRN ×3 (05:11→20:12)
[2017-06-28 05:56] LABS: BASO % 0.3 %; BASO ABS # 0.02 K/uL (0-0.2); COMPLETE YES; EOS % 6.6 %; HEMATOCRIT 35.7 % (42-52); IG% 0.3 %; LYMPH % 20.9 %; MEAN CELL VOLUME 91.3 fL (80-100); MEAN CORPUSCULAR HEMOGLOBIN 29.9 pg (25-34); MEAN CORPUSCULAR HGB CONC 32.8 g/dl (32-36); MEAN PLATELET VOLUME 9.6 fL (7.4-10.4); MONO % 12.7 %; NEUT % 59.2 %; PLATELET COUNT 171 K/uL (130-400); RED BLOOD COUNT 3.91 M/uL (4.7-6.1); WHITE BLOOD COUNT 6.69 K/uL (4.8-10.8)
--- NOTE | 2017-06-28 06:26 | DIAGNOSTIC IMAGING REPORT ---
ULTRASOUND VENOUS DOPPLER LWR EXT BILA CLINICAL HISTORY: Elevated d-dimer. Atypical chest pain. Possible pulmonary embolism. COMPARISON STUDY: 12/12/2010 FINDINGS: Real-time and color flow Doppler imaging were performed. Flow was seen within the femoral, popliteal and calf veins with no intraluminal thrombus demonstrated. The saphenous vein is patent. There is a right popliteal cyst measuring 6 x 2 x 4 cm. Is a complex left popliteal cyst measuring 8 x 1.5 x 5 cm. IMPRESSION: No evidence of lower extremity DVT. Electronically signed by: Yash Walker M.D. 06/28/2017 6:25 AM Dictated Date/Time: 06/28/2017 6:23 AM
--- NOTE | 2017-06-28 06:39 | DIAGNOSTIC IMAGING REPORT ---
VENOUS DOPPLER UPR EXT BILA HISTORY: 61 years-old Male to rule out dvt b/c melva pe acute pulmonary muscles with concern for possible DVT COMPARISON: Duplex venous ultrasound of the lower extremities of same day TECHNIQUE: Multiple real-time sonographic images of the bilateral upper extremity deep venous structures were obtained assessing grayscale appearance, color and spectral flow FINDINGS: Bandages overlie the right arm which mildly limits the study. There is normal flow, compressibility, augmentation, and phasicity within the bilateral upper extremity deep venous structures. IMPRESSION: No sonographic evidence of deep venous thrombosis. The above report was generated using voice recognition software. It may contain grammatical, syntax or spelling errors. Electronically signed by: Last Adams M.D. 06/28/2017 6:38 AM Dictated Date/Time: 06/28/2017 6:36 AM
[2017-06-28 06:44] LABS: BUN/CREATININE RATIO 9.9 (10-20); CALCIUM 8.8 mg/dl (8.5-10.1); CREATININE 1.57 mg/dl (0.60-1.40); MAGNESIUM 1.8 mg/dl (1.8-2.4); POTASSIUM 4.4 mmol/L (3.5-5.1)
[2017-06-28 06:48] LABS: PHOSPHORUS 2.2 mg/dl (2.5-4.9); THYROID STIMULATING HORMONE 1.65 uIu/ml (0.300-4.500)
[2017-06-28 07:24] VITALS: BP 155/95; PULSE 86; TEMP 36.7; O2SAT 95
[2017-06-28] MEDS: ACETAMINOPHEN 325 MG TAB PO PRN ×2 (08:39→20:13)
[2017-06-28] MEDS: SODIUM CHLORIDE 0.9% 1000ML 1,000 ML IV SCH ×2 (08:39→20:15)
[2017-06-28] MEDS: CEFADROXIL 500 MG PO SCH ×2 (08:41→20:11)
[2017-06-28] MEDS: ASPIRIN 81 MG ECTAB PO SCH (08:43)
[2017-06-28] MEDS: GABAPENTIN 300 MG CAP PO SCH ×2 (08:43→20:11)
[2017-06-28] MEDS: PAROXETINE 20 MG TAB PO SCH (08:44)
[2017-06-28] MEDS: PANTOprazole SOD 40 MG TAB PO SCH (08:44)
[2017-06-28 09:17] LABS: PARTIAL THROMBOPLASTIN RATIO 1.8
[2017-06-28] MEDS ORDERED: HEPARIN IV BOLUS 4,000 UNIT in SYRINGE 0 ML IV ONE (09:45)
[2017-06-28] MEDS: HEPARIN 25,000 UNIT/500ML D5W 500 ML IV PRN (09:59)
--- NOTE | 2017-06-28 10:22 | ECHOCARDIOGRAM REPORT ---
*NOTICE TO RECEIVING REPUBLICAN AGENCY This information is strictly Confidential and protected under [place] law. [place] law prohibits you from making any further disclosure of this information unless further disclosure is expressly permitted by the written consent of the person to whom it pertains or is authorized by law. A general authorization for the release of medical or other information is not sufficient for this purpose. Hospital accepts no responsibility if the information is made available to any other person, INCLUDING THE PATIENT. Interpretation Summary * Name: TABATHA SOSA Study Date: 06/28/2017 08:52 AM BP: 155/95 mmHg * Patient Location: C.2T\S\S229\S\1 HR: 86 * : 1955 (M/d/yyy) Gender: Male Height: 72 in * Age: 61 yrs Ethnicity: CA Weight: 304 lb * Ordering Physician: Ronan Gonzalez * Referring Physician: Self, Referred * Performed By: Maureen Hernandez RCS * * Reason For Study: PE * BSA: 2.5 m2 * -- Conclusions -- * 1. Normal LV size. Mild concentric LVH. * 2. Normal LV systolic function. LVEF 55-60%. No regional wall motion abnormalities. * 3. Normal RV size and function. * 4. Mild mitral regurgitation. * 5. Normal estimated PA and RA pressures. * 6. Moderate left atrial enlargement. * 7. No prior studies for comparison. Procedure Details * A complete two-dimensional transthoracic echocardiogram was performed (2D, M-mode, Doppler and color flow Doppler). Left Ventricle * The left ventricle is grossly normal size. * There is mild concentric left ventricular hypertrophy. * Ejection Fraction = 55-60%. Right Ventricle * The right ventricle is grossly normal size. * The right ventricular systolic function is normal as assessed by tricuspid annular plane systolic excursion (TAPSE) (normal >1.5 cm). Atria * The left atrium is moderately dilated. * Right atrial size is normal. * Right atrium not well visualized. * No ASD detected; PFO is not assessed. Mitral Valve * The mitral valve is grossly normal. * There is mild mitral annular calcification. * There is no mitral valve stenosis. * There is mild mitral regurgitation. Tricuspid Valve * There is trace tricuspid regurgitation. Aortic Valve * The aortic valve opens well. * The aortic valve is trileaflet. Pulmonic Valve * The pulmonary valve is inadequately visualized, but the Doppler data is adequate for interpretation. * There is no significant pulmonary regurgitation. Great Vessels * The aortic root and proximal ascending aorta are normal sized. Pericardium/Pleural * There is no pericardial effusion. Great Vessels * Normal inferior vena cava size and collapsability with sniff indicates a normal right atrial pressure of 3 mmHg MMode 2D Measurements and Calculations IVSd 1.2 cm IVSs 1.3 cm LVIDd 4.8 cm LVIDs 3.2 cm LVPWd 1.2 cm LVPWs 1.6 cm IVS/LVPW 0.99 FS 32.0 % EDV(Teich) 105.9 ml ESV(Teich) 42.3 ml EF(Teich) 60.1 % EDV(cubed) 108.4 ml ESV(cubed) 34.1 ml EF(cubed) 68.6 % % IVS thick 10.9 % % LVPW thick 28.4 % LV mass(C)d 221.4 grams LV mass(C)dI 87.0 grams/m\S\2 LV mass(C)s 166.6 grams LV mass(C)sI 65.4 grams/m\S\2 SV(Teich) 63.6 ml SI(Teich) 25.0 ml/m\S\2 SV(cubed) 74.4 ml SI(cubed) 29.2 ml/m\S\2 Ao root diam 3.2 cm Ao root area 8.2 cm\S\2 LVOT diam 2.0 cm LVOT area 3.2 cm\S\2 LVAd ap4 41.6 cm\S\2 LVLd ap4 10.0 cm EDV(MOD-sp4) 145.3 ml EDV(sp4-el) 146.4 ml LVAs ap4 22.4 cm\S\2 LVLs ap4 7.6 cm ESV(MOD-sp4) 56.9 ml ESV(sp4-el) 56.2 ml EF(MOD-sp4) 60.8 % EF(sp4-el) 61.6 % LVAd ap2 43.5 cm\S\2 LVLd ap2 9.8 cm EDV(MOD-sp2) 151.1 ml EDV(sp2-el) 162.9 ml LVAs ap2 23.3 cm\S\2 LVLs ap2 8.0 cm ESV(MOD-sp2) 54.1 ml ESV(sp2-el) 57.5 ml EF(MOD-sp2) 64.2 % EF(sp2-el) 64.7 % LVLd %diff -1.84 % EDV(MOD-bp) 146.9 ml LVLs %diff 5.2 % ESV(MOD-bp) 56.9 ml EF(MOD-bp) 61.3 % SV(MOD-sp4) 88.3 ml SI(MOD-sp4) 34.7 ml/m\S\2 SV(MOD-sp2) 96.9 ml SI(MOD-sp2) 38.1 ml/m\S\2 SV(MOD-bp) 90.0 ml SI(MOD-bp) 35.4 ml/m\S\2 SV(sp4-el) 90.2 ml SI(sp4-el) 35.4 ml/m\S\2 SV(sp2-el) 105.4 ml SI(sp2-el) 41.4 ml/m\S\2 Doppler Measurements and Calculations MV E max juhi 101.4 cm/sec MV A max juhi 127.3 cm/sec MV E/A 0.80 MV P1/2t max juhi 117.3 cm/sec MV P1/2t 69.5 msec MVA(P1/2t) 3.2 cm\S\2 MV dec slope 494.4 cm/sec\S\2 MV dec time 0.23 sec Ao V2 max 151.5 cm/sec Ao max PG 9.2 mmHg Ao max PG (full) 2.5 mmHg VINICIUS(V,A) 2.7 cm\S\2 VINICIUS(V,D) 2.7 cm\S\2 LV V1 max PG 6.7 mmHg LV V1 max 129.5 cm/sec PA V2 max 107.0 cm/sec PA max PG 4.6 mmHg
[2017-06-28 12:02] VITALS: BP 138/92; PULSE 91; TEMP 36.5; O2SAT 95
--- NOTE | 2017-06-28 14:50 | Progress Note ---
Subjective Date of Service: Jun 28, 2017. Subjective Pt evaluation today including: conversation w/ patient, physical exam, chart review, lab review, review of studies, review of inpatient medication list Resting comfortably in bed No shortness of breath No chest pain No acute events overnight Problem List Medical Problems: (1) Pulmonary embolism Status: Acute (2) Shoulder pain, right Status: Acute Review of Systems Constitutional: No fever, No chills, No sweats, No weight loss Eyes: No worsening of vision, No eye pain, No redness, No discharge Respiratory: No cough, No sputum, No wheezing, No shortness of breath Cardiac: No chest pain, No orthopnea, No PND, No edema Abdomen: No pain, No nausea, No vomiting, No diarrhea Musculoskeletal: No joint pain, No muscle pain, No swelling, No calf pain Male : No dysuria, No urinary frequency, No incontinence, No slowing stream Neurologic: No memory loss, No paralysis, No weakness, No numbness/tingling Psychiatric: No depression symptoms, No anhedonism, No anxiety, No insomnia Skin: No rash, No itch Objective Vital Signs Date Time Temp Pulse Resp B/P (MAP) Pulse Ox O2 Delivery O2 Flow Rate FiO2 06/28/17 12:02 36.5 91 17 138/92 (107) 95 Room Air 06/28/17 12:00 Nasal Cannula 2.0 06/28/17 08:00 Nasal Cannula 2.0 06/28/17 07:24 36.7 86 20 155/95 (115) 95 Nasal Cannula 2.0 06/28/17 04:00 Nasal Cannula 2.0 06/28/17 03:58 37.4 84 18 147/93 (111) 93 Nasal Cannula 2.0 06/27/17 23:59 Nasal Cannula 2.0 06/27/17 23:31 36.5 96 20 154/101 (118) 96 2.0 06/27/17 19:49 37.3 115 18 130/86 94 Nasal Cannula 2.0 06/27/17 18:25 114 18 182/107 94 Nasal Cannula 2.0 06/27/17 16:25 101 20 118/80 93 Nasal Cannula 2.0 06/27/17 16:19 104 06/27/17 15:38 92 Room Air 06/27/17 15:00 93 Room Air Physical Exam General Appearance: WD/WN, no apparent distress Eyes: normal inspection, PERRL, EOMI, sclerae normal Neck: supple, no adenopathy, thyroid normal, no JVD Respiratory/Chest: chest non-tender, lungs clear, normal breath sounds, no respiratory distress Cardiovascular: regular rate, rhythm, no edema, no gallop, no JVD Abdomen: normal bowel sounds, non tender, soft, no organomegaly Neurologic/Psychiatric: no motor/sensory deficits, alert, normal mood/affect, oriented x 3 Laboratory Results Last 24 Hours Test 06/27/17 15:35 06/27/17 18:49 06/28/17 01:07 06/28/17 05:21 White Blood Count 7.97 K/uL 6.69 K/uL Red Blood Count 4.12 M/uL 3.91 M/uL Hemoglobin 12.4 g/dL 11.7 g/dL Hematocrit 37.3 % 35.7 % Mean Corpuscular Volume 90.5 fL 91.3 fL Mean Corpuscular Hemoglobin 30.1 pg 29.9 pg Mean Corpuscular Hemoglobin Concent 33.2 g/dl 32.8 g/dl Platelet Count 168 K/uL 171 K/uL Mean Platelet Volume 9.5 fL 9.6 fL Neutrophils (%) (Auto) 70.7 % 59.2 % Lymphocytes (%) (Auto) 16.2 % 20.9 % Monocytes (%) (Auto) 9.0 % 12.7 % Eosinophils (%) (Auto) 3.5 % 6.6 % Basophils (%) (Auto) 0.3 % 0.3 % Neutrophils # (Auto) 5.64 K/uL 3.96 K/uL Lymphocytes # (Auto) 1.29 K/uL 1.40 K/uL Monocytes # (Auto) 0.72 K/uL 0.85 K/uL Eosinophils # (Auto) 0.28 K/uL 0.44 K/uL Basophils # (Auto) 0.02 K/uL 0.02 K/uL RDW Standard Deviation 46.2 fL 46.6 fL RDW Coefficient of Variation 14.0 % 14.0 % Immature Granulocyte % (Auto) 0.3 % 0.3 % Immature Granulocyte # (Auto) 0.02 K/uL 0.02 K/uL Activated Partial Thromboplast Time 30.3 SECONDS 94.5 SECONDS Partial Thromboplastin Ratio 1.2 3.6 D-Dimer 1840 ug/L FEU Sodium Level 137 mmol/L 136 mmol/L Potassium Level 3.8 mmol/L 4.4 mmol/L Chloride Level 105 mmol/L 103 mmol/L Carbon Dioxide Level 26 mmol/L 29 mmol/L Anion Gap 7.0 mmol/L 4.0 mmol/L Blood Urea Nitrogen 19 mg/dl 15 mg/dl Creatinine 1.75 mg/dl 1.57 mg/dl Est Creatinine Clear Calc Drug Dose 63.8 ml/min 71.2 ml/min Estimated GFR () 47.7 54.3 Estimated GFR (Non- 41.1 46.9 BUN/Creatinine Ratio 10.7 9.9 Random Glucose 166 mg/dl 101 mg/dl Calcium Level 8.9 mg/dl 8.8 mg/dl Total Bilirubin 0.4 mg/dl Direct Bilirubin 0.1 mg/dl Aspartate Amino Transf (AST/SGOT) 32 U/L Alanine Aminotransferase (ALT/SGPT) 29 U/L Alkaline Phosphatase 68 U/L Troponin I < 0.015 ng/ml Pro-B-Type Natriuretic Peptide 520 pg/ml Total Protein 7.1 gm/dl Albumin 2.8 gm/dl Lipase 141 U/L Hepatitis C Antibody Screen NEG Phosphorus Level 2.2 mg/dl Magnesium Level 1.8 mg/dl Thyroid Stimulating Hormone (TSH) 1.650 uIu/ml Test 06/28/17 08:46 Activated Partial Thromboplast Time 46.7 SECONDS Partial Thromboplastin Ratio 1.8 Assessment and Plan A 61 yo male who presented with worsening shortness of breath, s/p right shoulder surgery Bilateral PE as evidenced by CTA chest. Improved on heparin drip. Satting well at this time. Will convert to xarelto 15 mg PO BID x three weeks then 20 mg once daily for remainder of 6 months. Hypercoag workup due to family hx of clotting disorder pending. Recent right shoulder surgery, PT consulted, pain controlled with dilaudid PO Chronic kidney disease stage III, had a CT of the chest with IV contrast. Close to baseline, improving History of benign prostatic hypertrophy. Gastroesophageal reflux disease, stable, cont PPI Anxiety, cont paxil Accelerated hypertension, blood pressure at 182/107.
[2017-06-28 15:17] VITALS: BP 134/81; PULSE 82; TEMP 36.4; O2SAT 96
[2017-06-28] MEDS: RIVAROXABAN TAB 15 MG TAB PO SCH ×2 (15:51→23:18)
[2017-06-28 16:09] LABS: PARTIAL THROMBOPLASTIN RATIO 3.2
[2017-06-28] MEDS: hydrOXYzine HCL 25 MG TAB PO SCH (20:12)
[2017-06-28] MEDS: DOXAZosin MESYLATE TAB 4 MG TAB PO SCH (20:12)
[2017-06-28 20:16] VITALS: BP 118/70; PULSE 80; TEMP 36.5; O2SAT 97
[2017-06-28] MEDS ORDERED: [UNRECOGNIZED DRUG - OTHER] SCH (21:00)
[2017-06-28 23:12] VITALS: BP 127/73; PULSE 90; TEMP 36.7; O2SAT 96
[2017-06-29] MEDS: HYDROmorphone HCL 2 MG TAB PO PRN ×2 (02:01→08:47)
[2017-06-29 04:00] VITALS: BP 118/70; PULSE 80; TEMP 36.5; O2SAT 97
[2017-06-29 04:47] LABS: HEMATOCRIT 32.8 % (42-52); MEAN CELL VOLUME 90.9 fL (80-100); MEAN CORPUSCULAR HEMOGLOBIN 29.4 pg (25-34); MEAN PLATELET VOLUME 9.3 fL (7.4-10.4); PLATELET COUNT 175 K/uL (130-400); RED BLOOD COUNT 3.61 M/uL (4.7-6.1); WHITE BLOOD COUNT 5.11 K/uL (4.8-10.8)
[2017-06-29 05:11] LABS: PARTIAL THROMBOPLASTIN RATIO 1.5
[2017-06-29 05:23] LABS: MEAN CORPUSCULAR HGB CONC 32.3 g/dl (32-36)
[2017-06-29 07:36] VITALS: BP 124/75; PULSE 78; TEMP 36.5; O2SAT 96
[2017-06-29] MEDS: CEFADROXIL 500 MG PO SCH (08:48)
[2017-06-29] MEDS: SODIUM CHLORIDE 0.9% 1000ML 1,000 ML IV SCH (08:54)
[2017-06-29] MEDS: PANTOprazole SOD 40 MG TAB PO SCH (08:55)
[2017-06-29] MEDS: ASPIRIN 81 MG ECTAB PO SCH (08:57)
[2017-06-29] MEDS: PAROXETINE 20 MG TAB PO SCH (08:57)
[2017-06-29] MEDS: RIVAROXABAN TAB 15 MG TAB PO SCH (08:57)
[2017-06-29] MEDS: GABAPENTIN 300 MG CAP PO SCH (08:58)
[2017-06-29 09:16] LABS: BUN/CREATININE RATIO 9.6 (10-20); CREATININE 1.6 mg/dl (0.60-1.40)
[2017-06-29] MEDS ORDERED: XRL15 PO (11:00)
[2017-06-29] MEDS ORDERED: RIVA1TAB4 PO (11:00)
--- NOTE | 2017-06-29 11:07 | Discharge Instructions ---
Discharge Instructions Date of Service Jun 29, 2017. Admission Reason for Admission: Acute Vitor Pe Discharge Discharge Diagnosis / Problem: Bilateral pulmonary embolism Discharge Goals Goal(s): Decrease discomfort, Improve function, Increase independence, Improve disease control, Learn about illness, Diagnostic testing, Therapeutic intervention Activity Recommendations Activity Limitations: resume your previous activity Exercise/Sports Limitations: as tolerated . Instructions / Follow-Up Instructions / Follow-Up Patient to be discharged home Please take new medication xarelto 15 mg tablet twice a day for 3 weeks and then 20 mg tablet once a day for duration of 6 months Please follow up with Dr. Vital's office w/ Dr. Butt on July 05 at 9:30 am If worsening pain, shortness of breath, or coughing up blood please report to ER Patient instructed to watch for bleeding in urine, stools, or coughing up blood as may be an adverse effect of new medication xarelto Current Hospital Diet Patient's current hospital diet: Regular Diet Discharge Diet Recommended Diet: Regular Diet Pending Studies Studies pending at discharge: yes List of pending studies: hypercoagulable workup Medical Emergencies . Who to Call and When: Medical Emergencies: If at any time you feel your situation is an emergency, please call 911 immediately. . Non-Emergent Contact Non-Emergency issues call your: Primary Care Provider Call Non-Emergent contact if: your pain is worsening, you have any medication questions . . "Provider Documentation" section prepared by Mariano Kerr. . VTE Core Measure Inpt VTE Proph given/why not?: Other Anticoagulation
[2017-06-29 11:14] VITALS: BP 160/97; PULSE 95; TEMP 36.6; O2SAT 96
[2017-06-29 12:23] VITALS: BP 160/97; PULSE 95; TEMP 36.6; O2SAT 96
--- NOTE | 2017-06-29 16:00 | Discharge Summary ---
Discharge Summary Date of Service Jun 29, 2017. Discharge Summary Admission Date: Jun 27, 2017 at 19:26 Discharge Date: Jun 29, 2017 Discharge Disposition: Home Principal Diagnosis: Bilateral PE Immunizations: Have You Had Influenza Vaccine: No History of Tetanus Vaccine?: Unknown History of Pneumococcal: No History of Hepatitis B Vaccine: Unknown Medication Reconciliation New Medications: Rivaroxaban (Xarelto) 20 Mg Tab 20 MG PO DAILY for 30 Days, #30 TABS Please take 20 mg tablet once a day AFTER taking the 15 mg tablet twice a day for 21 days Rivaroxaban (Xarelto) 15 Mg Tab 15 MG PO BID for 21 Days, #42 TAB Continued Medications: Acetaminophen (Tylenol) 500 Mg Tab 1000 MG PO Q8 PRN for Pain, TAB Aspirin (Aspirin Ec) 81 Mg Tab 81 MG PO DAILY Cefadroxil (Cefadroxil) 500 Mg Cap 500 MG PO Q12 PRESCRIBED 06/26/2017, TAKE DIRECTED UNTIL GONE Cholecalciferol (Vitamin D3) 2,000 Unit Tab 2000 INTER.UNIT PO DAILY, TAB Docusate Sodium (Docusate Sodium) 100 Mg Cap 100 MG PO BID PRN for Constipation, CAP Doxazosin Mesylate (Doxazosin Mesylate) 8 Mg Tab 8 MG PO HS Gabapentin (Gabapentin) 300 Mg Cap 300 MG PO Q12 Hydromorphone Hcl (Hydromorphone Hcl) 2 Mg Tab 2-4 MG PO Q6H PRN for Moderate/Severe Pain NEEDED FOR MODERATE PAIN RATED 4-6 ON A SCALE OF "0-10" OR FOR SEVERE PAIN RATED 7-10 ON A SCALE OF "0-10" Hydroxyzine HCl (Hydroxyzine HCl) 25 Mg Tab 25 MG PO HS Omeprazole (Prilosec) 20 Mg Cap 20 MG PO DAILY Paroxetine (Paroxetine HCl) 20 Mg Tab 20 MG PO DAILY Senna (Senokot) 8.6 Mg Tab 8.6 MG PO Q12 PRN for Constipation, TAB Discharge Exam Review of Systems: Constitutional: No fever, No chills, No sweats, No weight loss, No weakness Eyes: No worsening of vision, No eye pain, No redness, No discharge ENT: No hearing loss, No unusual epistaxis, No nasal symptoms, No sore throat Respiratory: No cough, No sputum, No wheezing, No shortness of breath Cardiovascular: No chest pain, No orthopnea, No PND, No edema Abdomen: No pain, No nausea, No vomiting, No diarrhea Musculoskeletal: + joint pain, No muscle pain, No swelling, No calf pain Genitourinary - Male: No hematuria, No dysuria, No urinary frequency, No urinary urgency Neurologic: No memory loss, No paralysis, No weakness, No numbness/tingling Psychiatric: No depression symptoms, No anhedonism, No anxiety, No insomnia Endocrine: No fatigue, No excessive thirst Integumentary: No rash, No itch, No new/changing skin lesions, No color change Physical Exam: General Appearance: WD/WN, no apparent distress Eyes: normal inspection, PERRL, EOMI, sclerae normal ENT: normal ENT inspection, hearing grossly normal, TMs normal, pharynx normal Neck: supple, no adenopathy, thyroid normal, no JVD Respiratory/Chest: chest non-tender, lungs clear, normal breath sounds, no respiratory distress Cardiovascular: regular rate, rhythm, no edema, no gallop, no JVD Abdomen / GI: normal bowel sounds, non tender, soft, no organomegaly, no pulsatile mass Extremities: normal inspection, no calf tenderness, normal capillary refill , no pedal edema Neurologic/Psychiatric: no motor/sensory deficits, alert, normal mood/affect , normal reflexes Skin: normal color, warm/dry, no rash Lymphatic: no adenopathy Hospital Course A 61 yo male who presented with worsening shortness of breath, s/p right shoulder surgery Bilateral PE as evidenced by CTA chest. Improved on heparin drip. Satting well at this time. Converted to xarelto 15 mg PO BID x three weeks then 20 mg once daily for remainder of 6 months. Hypercoag workup due to family hx of clotting disorder pending. Stable for discharge home Recent right shoulder surgery, PT consulted, pain controlled with dilaudid PO Chronic kidney disease stage III, had a CT of the chest with IV contrast. Close to baseline, improving History of benign prostatic hypertrophy. Gastroesophageal reflux disease, stable, cont PPI Anxiety, cont paxil Accelerated hypertension, blood pressure at 182/107. Total Time Spent: Greater than 30 minutes This includes examination of the patient, discharge planning, medication reconciliation, and communication with other providers. Discharge Instructions Please refer to the electronic Patient Visit Report (Discharge Instructions) for additional information. Additional Copies To Juan Carlos Vital M.D.
[2017-06-29] MEDS ORDERED: CEFADROXIL PO SCH (21:00)
[2017-07-02 15:36] LABS: ANTITHROMBINIII ACTIVITY** 92 % activity (80-120); B2 GLYCOPROTEIN IGA <9 SAU (<=20); B2 GLYCOPROTEIN IGG <9 SGU (<=20); B2 GLYCOPROTEIN IGM <9 SMU (<=20); LUPUS ANTICOAGULANT** TC36573X Weak Positive (Negative); PROTEIN C ACTIVITY** TC 1777X 115 % (70-180); PROTEIN S ACT(FUNCT)**1779X 59 % (70-150)
== END 2017-06-29 13:59 | disposition home or self-care (01) | DRG 176 ==
LOC: C.EDB 14:40 → ENRESERV 18:49 → C.2T 19:26
PROVIDERS: ADMIT Hospitalist; ATTEND Hospitalist
DX: I26.99 Other pulmonary embolism without acute cor pulmonale (principal); Z68.41 Body mass index [BMI] 40.0-44.9, adult; I12.9 Hypertensive chronic kidney disease with stage 1 through stage 4 chronic kidney disease, or unspecified chronic kidney disease; N18.3 Chronic kidney disease, stage 3 (moderate); N40.0 Benign prostatic hyperplasia without lower urinary tract symptoms; E66.01 Morbid (severe) obesity due to excess calories; K21.9 Gastro-esophageal reflux disease without esophagitis; F41.9 Anxiety disorder, unspecified; Z79.82 Long term (current) use of aspirin; Z79.899 Other long term (current) drug therapy; Z88.8 Allergy status to other drugs, medicaments and biological substances; Z96.611 Presence of right artificial shoulder joint

== ENCOUNTER 2019-01-13 23:03 | Inpatient (IN) ==
--- OUTSIDE RECORDS SUMMARY | 2019-01-13 23:08 | External Medical Summary | Continuity of Care Document ---
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 Refills: 0 PriLOSEC OTC 20 MG Oral Tablet Delayed R elease; TAKE 1 OR 2 TABLET DAILY DIRECTED. Refills: 0 Vitamin D 1000 UNIT CAPS; Take one OTC capsule daily. Mirza Christy Start: 01-Jul-2014 Refills: 0 hydrOXYzine HCl - 25 MG Oral Tablet; Take 1 tablet daily Refills: 0 Lisinopril 5 MG Oral Tablet; take 1/2 tablet by mouth once daily Mirza Zelaya Start: 28-Dec-2017 Quantity: 90 Refills: 3 Iron Supplement 325 (65 Fe) MG TABS; Take one OTC tabl et daily. Mirza Zelaya Start: 01-Jul-2014 Refills: 0 Paxil 20 MG Oral Tablet; TAKE 1 TABLET DAILY. Refills: 0 Procedures History of Hip Surgery Status: Completed History of Shoulder Surgery Status: Comp leted History of Inguinal Hernia Repair Status : Completed 10-Aug-2016 0:00 Immunizations Immunizations not documented Family History Father Family history of Cerebral Artery Occlusion Status: Active Mother Family history of Arthritis (V17.7) Status: Active Sister Family history of Diabetes Mellitus (V18.0) Status: Active Social History - Smoking Status Unknown if ever smoked Never smoker Plan of Treatment Planned Encounters Appointment; Vito Zelaya M.D. Start: 15-Jan-2019 12:45 Request Planned Observations Planned Goals not documented Results URINALYSIS WITH REFLEX Laboratory: [facility] Comments: Specime n Received TO [employer] Date/Time: 01-01 05:[address] [id number] 31-Dec-2018 14:42 BILIRUBIN NEGATIVE Range: NEGATIVE KETONES NEGATIVE Range: NEGATIVE GLUCOSE,QUAL NEGATIVE Range: NEGATIVE PROTEIN,TOTAL,QUAL Range: NEGATIVE NEGATIVE HEMOGLOBIN,QUAL NEGATIVE Range: NEGATIV E PH 6.0 Range: 5.0-8.0 NITRITE NEGATIVE Range: NEGATIVE LEUKOCYTE ESTERASE Range: NEGATIVE NEGATIVE COLOR YELLOW Range: YELLOW APPEARANCE CLEAR Range: CLEAR SPECIFIC GRAVITY 1.016 Range: 1.001-1.0 35 Renal Panel Laboratory: [facility] Comments: Specimen R eceived [employer] [facility] Date/Time: 01-01 05:02 [place] [id number] 31-Dec-2018 14:42 SODIUM 138 {MMOL/L} Range: 135-146 POTASSIUM 4.0 {MMOL/L} Range: 3.5-5.3 CHLORIDE 104 {MMOL/L} Range: 98-110 CARBON DIOXIDE 24 Range: 20-32 {MMOL/L} Comments: Reference range for high altitude clients: 18-30 mmol/L PHOSPHORUS 2.5 {MG/DL} Range: 2.5-4.5 CALCIUM 9.2 {MG/DL} Range: 8.6-10.3 GLUCOSE 90 {MG/DL} Range: 65-99 Comments: GLUCOSE RE FERENCE RANGE BASED ON FASTING SPECIMEN. UREA NITROGEN 26 {MG/DL} Range: 7-25 (above high threshold) CREATININE 2.05 {MG/DL} Range: 0.70-1.2 5 (above high threshold) Comments: [facility] er reference limit for Creatinine is [id number]% higher for people identified as -Cymraes. BUN/CREATININE RATIO Range: 6-22 12.8 ALBUMIN 3.8 {G/DL} Range: 3.6-5.1 EGFR NON-AFR. NAMIBIAN Range: > OR = 60 33 {ML/MIN/1.73M2} (below low threshold) EGFR 39 Range: > OR = 60 {ML/MIN/1.73M2} (below low threshold) Vitamin D, 25-Hydroxy Laboratory: [facility] Comments: Specimen Received [employer] [facility] Date/Time: 01-01 05:[address] [address] 31-Dec-2018 14:42 VITAMIN D,25-OH,TOTAL,IA Range: 30-100 49 {NG/ML} Comments: Vitamin D Status 25-OH Vitamin D: Deficiency: <20 ng/mLInsufficiency: 20-29 ng/mLOptimal: > or = 30 ng/mL For 25-OH Vitamin D testing on patients onD2-supp lementation and christina ents for whom quantitation of D2and D3 fractions is required, the [facility] 25-OH Vit D,(D2,D3),LC/MS/MS is recommended: Order code 12312 (patients>2 yrs). CBC No Diff Laboratory: [facility] Comments: Specimen R eceived [employer] [facility] Date/Time: 01-01 05:[address] [address] 31-Dec-2018 14:42 WBC 6.3 {THOUS/MCL} Range: 3.8-10.8 RBC 4.30 {MILL/MCL} Range: 4.20-5.80 HEMOGLOBIN 13.0 {G/DL} Range: 13.2-17.1 (below low threshold) HEMATOCRIT 38.9 % Range: 38.5-50.0 MCV 90.6 {FL} Range: 80.0-100.0 MCH 30.2 PG Range: 27.0-33.0 MCHC 33.3 {G/DL} Range: 32.0-36.0 RDW 14.4 % Range: 11.0-15.0 PLATELET COUNT 200 Range: 140-400 {THOUS/MCL} MPV 8.9 {FL} Range: 7.5-12.5 PROTEIN,TOTAL Laboratory: [facility] Comments: Specimen R eceived W/CREAT,RANDOM URINE [facility] Date/Time: 2018 05:[address] [address] 31-Dec-2018 14:42 PROTEIN,TOTAL,RANDOM Range: 5-25 URINE 18 {MG/DL} CREATININE,URINE 199 Range: 20-320 {MG/DL} PROTEIN/CREATININE RATIO Range: 22-128 90 {MG/G_CREATININE} PROTEIN/CREATININE RATIO Range: 0.022-0 .128 0.090 {MG/MG_CREATININE} PTH, Intact Laboratory: [facility] Comments: Specimen R eceived DIAGNOSTICS [email or web address] Date/Time: 12-31 22:[address] [address] 31-Dec-2018 14:42 PTH,INTACT 50 PG/ML Range: 14-64 Comments: INTERPRETI VE GUIDE INTACT PTH CALCIUM -------NORMAL PARATHYROID FUNCTION NORMAL NORMALHYPOPARATHYROIDISM L OW OR LOW NORMAL LOWPRIMARY HYPERPARATHYROIDISM NORMAL OR HIGH HIGHSECONDARY HYPERPARATHYROIDISM HIGH NORMAL OR LOWTERTIARY HYPERPARATHYROIDISM HIGH HIGHNON-PA RATHYROID HYPERCALCE ALBA LOW OR LOW NORMAL HIGH Encounters Appointment; Vito Zelaya M.D. 10-Jul-2018 12:45 Encounter Diagnosis: Problem not documented Appointment; Vito Zelaya M.D. 21-Jan-2018 9:00 Encounter Diagnosis: Problem not documented Appointment; Vito Zelaya M.D. 28-Dec-2017 15:15 Encounter Diagnosis: Problem not documented Appointment; Vito Zelaya M.D. 13-Jun-2017 14:45 Encounter Diagnosis: Problem not documented Appointment; Vito Zelaya M.D. 15-Jan-2019 12:45 Encounter Diagnosis: Problem not documented
[2019-01-13] MEDS ORDERED: ALUMINUM/MAGNESIUM SUSP 30 ML UDC PO STA (23:16)
[2019-01-13 23:49] LABS: Basophils # (auto) 0.02 K/uL (0-0.2); Basophils % (auto) 0.3 %; Eosinophils # (auto) 0.46 K/uL (0-0.5); Eosinophils % (auto) 7.2 %; Hematocrit (blood only) 39.4 % (42-52); Hemoglobin 13.4 g/dL (14.0-18.0); Immature Granulocytes # (auto) 0.01 K/uL (0.00-0.02); Immature Granulocytes % (auto) 0.2 %; Lymphocytes # (auto) 2.01 K/uL (1.2-3.4); Lymphocytes % (auto) 31.4 %; Mean Platelet Volume 9.9 fL (7.4-10.4); Monocytes # (auto) 0.76 K/uL (0.11-0.59); Monocytes % (auto) 11.9 %; Neutrophils # (auto) 3.14 K/uL (1.4-6.5); Platelet Count 187 K/uL (130-400); RDW Coefficient of Variation 14.2 % (11.5-14.5); RDW Standard Deviation 47.1 fL (36.4-46.3); Red Blood Count 4.38 M/uL (4.7-6.1)
[2019-01-14 00:07] LABS: Alanine Aminotransferase 24 U/L (12-78); Albumin Level 3.1 gm/dl (3.4-5.0); Aspartate Aminotransferase 18 U/L (15-37); Blood Urea Nitrogen 22 mg/dl (7-18); Calcium 9.7 mg/dl (8.5-10.1); Carbon Dioxide 27 mmol/L (21-32); Chloride 108 mmol/L (98-107); Creatinine Clr Calc Pharmacy 62.6 ml/min; Est GFR (Non-African American) 41.4; Glucose 112 mg/dl (70-99); Sodium 141 mmol/L (136-145)
[2019-01-14 00:12] LABS: Albumin Globulin Ratio 0.8 (0.9-2); Alkaline Phosphatase 72 U/L (45-117); Bilirubin,Total 0.3 mg/dl (0.2-1); Total Protein 7.1 gm/dl (6.4-8.2); Troponin I < 0.015 ng/ml (0-0.045)
[2019-01-14 00:13] LABS: Partial Thromboplastin Ratio 0.9; Partial Thromboplastin Time 25.7 Seconds (21.0-31.0); Prothrombin Time 9.9 Seconds (9.0-12.0)
[2019-01-14 00:19] LABS: D Dimer 5040 ug/L FEU (0-500)
[2019-01-14] MEDS ORDERED: OPTIRAY 320 125ml IV PRN (00:52)
--- NOTE | 2019-01-14 01:13 | Emergency Department Note ---
Entered by Abiodun Hoffmann acting as a scribe for Leonard Grier DO History of Present Illness General Chief complaint: Chest Pain Stated complaint: CHEST PAIN - POSSIBLE PULANARY EMBOLISIM? Source: patient History of Present Illness Provider complaint: Chest pain Onset (ago): day(s) 6 Location: chest Radiation: non-radiation Pain Consistency: + constant Maximum Pain Intensity: 5 Quality: + other (Pressure) Relieved By: + none Exacerbated By: + none Associated symptoms: + shortness of breath and + other (Positive left leg soreness) The patient is a 63 year old male who presents to the Emergency Room with complaints of constant chest pressure that started about 6 days ago. The patient states the pain is in the middle of his chest and does not radiate anywhere. He also notes that he is experiencing some shortness of breath and lower extremity numbness with the pain. The patient reports that a few days prior to the onset of the chest pain he has soreness in his left lower extremity that has since resolved. The patient went to his doctors today who put him on a heart monitor and it was normal. He states his doctor also told him that his lower extremities look slightly swollen. The patient has no history of myocardial infarctions or cardiac catheterizations but does have a history of a pulmonary embolism that occurred after a surgery. Moreover, the patient mentioned that he recently flew back from [place] last week. Home Medications Home Medications Medication Instructions Recorded Confirmed Type doxazosin 8 mg PO HS 01/13/19 01/13/19 History hydroxyzine HCl 25 mg PO HS PRN 01/13/19 01/13/19 History losartan 12.5 mg PO DAILY 01/13/19 01/14/19 History omeprazole 20 mg PO DAILY 01/13/19 01/13/19 History paroxetine HCl 20 mg PO DAILY 01/13/19 01/13/19 History Allergies Allergy/AdvReac Type Severity Reaction Status Date / Time alprazolam Allergy Unknown hives Verified 01/14/19 00:17 Past Med/Surg History Medical History Abdominal pain (Acute) Arthritis, shoulder region (Acute) Diverticulosis (Acute) Knee pain (Acute) Popliteal cyst (Acute) Pulmonary embolism Family History Other No pertinent family history in first degree relatives Social History Feels Safe at Home: Yes Smoking Status: Never smoker Review of Systems See HPI for pertinent positives & negatives. and A total of 10 systems reviewed and were otherwise negative Physical Exam Vital Signs Vital Signs - 24 hr 01/13/19 23:05 01/13/19 23:33 01/14/19 00:12 Temperature 36.8 C Temperature Source Oral Sepsis Action Taken by Nursing No Action Required Pulse Rate 97 H 88 Pulse Rate [Apical] 77 Pulse Rhythm [Apical] Regular Pulse Strength [Apical] Normal Respiratory Rate 20 19 Respiratory Effort / Characteristics Non-Labored Non-Labored Respiratory Depth Normal Normal Respiratory Pattern Regular Blood Pressure 153/93 H Blood Pressure [Right Arm] 155/103 H Blood Pressure Mean 113 Blood Pressure Mean [Right Arm] 120 Blood Pressure Position [Right Arm] Lying Pulse Oximetry 96 97 97 Oxygen Delivery Method Room Air Room Air Room Air GENERAL: Patient is awake, alert, and in no acute distress.Patient is resting comfortably and showing no signs of anxiety EYES: The conjunctivae are clear. The pupils are round and reactive. EARS, NOSE, MOUTH AND THROAT: The nose is without any evidence of any deformity. Mucous membranes are moist.Tongue is midline NECK: The neck is nontender and supple. RESPIRATORY: Normal respiratory effort is noted. There is no evidence of wheezing rhonchi or rales to auscultation. CARDIOVASCULAR: Regular rate and rhythm noted. There no murmurs rubs or gallops normal S1 normal S2 GASTROINTESTINAL: The abdomen is soft. Bowel sounds are present in all quadrants. Abdomen is nontender. MUSCULOSKELETAL/EXTREMITIES: There is no evidence of gross deformity. Full range of motion is noted in the hips and shoulders. SKIN: There is no obvious evidence of any rash. There are no petechiae, pallor or cyanosis noted. NEUROLOGIC: Patient is awake alert and oriented x3. Course 2311: The patient was evaluated in room B03B, and a complete history and physical examination were performed. 0100: I updated the patient on his lab and imaging results. Dr. Cervantes - [facility] Hospitalist was paged. 0142: I spoke to Dr. Cervantes's resident about the patient's case and he will be accepting the patient for further evaluation. Consultations Consultation #1: I spoke to Dr. Cervantes's resident about the patient's case and he will be accepting the patient for further evaluation. Time: 01:42 Administered Medications Ioversol (Optiray 320 125ml) 125 ml IV ONCE PRN PRN Reason: Interaction Checking Stop: 01/18/19 00:51 Last Admin: 01/14/19 00:52 Dose: 117 ml Documented by: [id number] Discontinued Medications Al Hydrox/Mg Hydrox/Simethicone (Maalox) 30 ml PO NOW STA Stop: 01/13/19 23:17 Last Admin: 01/13/19 23:36 Dose: 30 ml Documented by: [id number] Medical Decision Making Differential Diagnosis Differential diagnoses includes but is not limited to acute coronary syndrome, myocardial infarction, pericarditis, pulmonary embolus, aortic dissection, pneumonia, pneumothorax, musculoskeletal, shingles, esophageal. Medical Records Attestation: I reviewed the patient's medical records. Home Medications Current Medication List: was personally reviewed by me Laboratory Data Attestation: I reviewed the patient's lab results. Result diagrams: 01/13/19 23:21 01/13/19 23:21 Lab Results 01/13/19 01/13/19 01/13/19 Range/Units 23:21 23:21 23:21 WBC 6.40 (4.8-10.8) K/uL RBC 4.38 L (4.7-6.1) M/uL Hgb 13.4 L (14.0-18.0) g/dL Hct 39.4 L (42-52) % MCV 90.0 (80-100) fL MCH 30.6 (25-34) pg MCHC 34.0 (32-36) g/dL RDW Std Deviation 47.1 H (36.4-46.3) fL RDW Coeff of Shruthi 14.2 (11.5-14.5) % Plt Count 187 (130-400) K/uL MPV 9.9 (7.4-10.4) fL Immature Gran % (Auto) 0.2 % Neut % (Auto) 49.0 % Lymph % (Auto) 31.4 % [place] % (Auto) 11.9 % Eos % (Auto) 7.2 % Baso % (Auto) 0.3 % Immature Gran # (Auto) 0.01 (0.00-0.02) K/uL Neut # (Auto) 3.14 (1.4-6.5) K/uL Lymph # (Auto) 2.01 (1.2-3.4) K/uL [place] # (Auto) 0.76 H (0.11-0.59) K/uL Eos # (Auto) 0.46 (0-0.5) K/uL Baso # (Auto) 0.02 (0-0.2) K/uL PT 9.9 (9.0-12.0) Seconds INR 1.0 (0.9-1.1) APTT 25.7 (21.0-31.0) Seconds PTT Ratio 0.9 D-Dimer 5040 H* (0-500) ug/L FEU Sodium 141 (136-145) mmol/L Potassium 4.0 (3.5-5.1) mmol/L Chloride 108 H (98-107) mmol/L Carbon Dioxide 27 (21-32) mmol/L Anion Gap 6.0 (3-11) BUN 22 H (7-18) mg/dl Creatinine 1.72 H (0.6-1.4) mg/dl Est Cr Clr Drug Dosing 62.6 ml/min Est GFR ( Amer) 48.0 Est GFR (Non-Af Amer) 41.4 BUN/Creatinine Ratio 13.0 (10-20) Glucose 112 H (70-99) mg/dl Calcium 9.7 (8.5-10.1) mg/dl Total Bilirubin 0.3 (0.2-1) mg/dl AST 18 (15-37) U/L ALT 24 (12-78) U/L Alkaline Phosphatase 72 (45-117) U/L Troponin I < 0.015 (0-0.045) ng/ml Total Protein 7.1 (6.4-8.2) gm/dl Albumin 3.1 L (3.4-5.0) gm/dl Globulin 4.0 (2.5-4.0) gm/dl Albumin/Globulin Ratio 0.8 L (0.9-2) Lipase 210 (73-393) U/L Imaging Data Attestation: I personally reviewed and interpreted this imaging study as follows: My Impression: CHEST X-RAY Heart size is top normal, no free air, no infiltrate, large hiatal hernia noted. No change from 06/27/17. Radiologist's Impression: 0200: CT the chest was obtained in the emergency department. I discussed the report with the stat read radiologist. There appears to be bilateral pulmonary emboli noted. There are also scattered subsegmental pulmonary emboli as well. There is a large hiatal hernia. There is also some flattening of the interventricular septum which could be consistent with right heart strain in the proper clinical scenario. The formal report is still pending. 0205: CTA CHEST: 06/27/17. Bilateral pulmonary emboli, greater on the left side. Larger PE within the left lower lobe artery and scattered within segmental and subsegmental arteries bilaterally throughout all the lobes. Flattening of the interventricular septum. May reflect right heart strain. Similar appearance to the prior. Mild cardiomegaly. Coronary calcifications. Large hiatal hernia, stable. Small and borderline enlarged mediastinal/paraesophageal nodes. Mild basilar dependent atelectasis, otherwise lungs appear clear. Right shoulder prosthesis Radiologist: Carmine Griggs M.D. Study ready at 00:58 and initial results transmitted at 02:02 ECG Data Attestation: I personally reviewed and interpreted this ECG as follows: Indication: chest pain Rate (beats per minute): 88 Rhythm: normal sinus Findings: no nonspecific-ST abn, no PAC and no PVC Comparison ECG Date: from (06/27/17) Change: no significant change Blood Pressure Blood Pressure Findings: Elevated blood pressure Blood Pressure Disposition: Referred to patients primary care provider MDM Narrative The patient is a 63-year-old male who presented to the emergency department for an evaluation of chest pain. The patient states that he has had ongoing chest discomfort that he described as pressure over the last 4 to 5 days. The patient recently returned from [place] from a trip. The patient has a history of venous thromboembolic disease but at that time it was felt to be provoked by postoperative state. The patient was seen by his table machine operator today and was placed on a air sampling and monitoring. His EKG did not show any acute ischemic changes. His d-dimer was elevated which prompted a CT the chest. CT the chest did show significant pulmonary embolus on the left side. The patient was started on anticoagulation. I discussed the patient's laboratory and radiographic studies with him. I discussed his case with the on-call [place] hospitalist. They have agreed to evaluate the patient in the emergency department for further management and disposition. Impression & Plan Pulmonary embolism, Chest pain Critical Care Time Critical Care Time: Yes Total Critical Care Time: 45 I have personally spent greater than 45 minutes of critical care time in the direct management of this patient. This includes bedside care, interpretation of diagnostic studies, and testing, discussion with consultants, patient, and family members, and other required patient management activities. This 45 minutes is in excess of all separately billable procedures. Discharge Plan Visit Data Chief Complaint: Chest Pain Stated Complaint: CHEST PAIN - POSSIBLE PULANARY EMBOLISIM? ED Provider: Leonard Grier Discharge Problem: Pulmonary embolism, Chest pain Patient Disposition: Being Evaluated by Hospitalist Forms Stand Alone Forms: Call Back Authorization, [facility] Prescriptions Prescriptions: No Action doxazosin 8 mg tablet 8 mg PO HS RF: 0 paroxetine HCl 20 mg tablet 20 mg PO DAILY RF: 0 losartan 25 mg tablet 12.5 mg PO DAILY RF: 0 omeprazole 20 mg capsule,delayed release(DR/EC) 20 mg PO DAILY RF: 0 hydroxyzine HCl 25 mg tablet 25 mg PO HS PRN (Reason: Anxiety) RF: 0 Referrals Referrals: Juan Carlos Vital [Primary Care Provider] - Discharge Problem: Pulmonary embolism Qualifiers: Pulmonary embolism type: unspecified Chronicity: acute Acute cor pulmonale presence: without acute cor pulmonale Qualified Code(s): I26.99 - Other pul monary embolism without acute cor pulmonale Chest pain Qualifiers: Chest pain type: precordial pain Qualified Code(s): R07.2 - Precordial pain The scribe's documentation has been prepared under my direction and personally reviewed by me in its entirety. I confirm that the note above accurately refle cts all work, treatment, procedures, and medical decision making performed by me.
--- NOTE | 2019-01-14 02:04 | History & Physical Report ---
Date of Service January 14, 2019 Assessment & Plan (1) Pulmonary embolism: 63-year-old male with previous history of PE in June 2017 status post right shoulder replacement surgery presents with chest pain x6 days. Associated with shortness of breath, lightheadedness, nausea, diarrhea. Patient reports traveling to [place] 9 days ago. PMHX: PE in June 2017 treated with Xarelto in the setting of right shoulder replacement surgery-had negative hypercoagulability work-up at that time, hypertension, CKD 3, BPH, anxiety, overactive bladder Chest pain in the setting of pulmonary embolism CTA chest: Bilateral PE greater on the left side, large left lower lobe artery PE, scattered emboli segmental and subsegmental, intraventricular septum flattening concerning for right heart strain, mild cardiomegaly, large hiatal herniastable, mild basilar atelectasis Chest x-ray negative except for large hiatal hernia D-dimer 5040 Troponin negative EK normal sinus no ST or T wave changes Started on heparin drip with bolus Stat bilateral lower extremity venous Doppler ordered Echo ordered given right heart strain Previous echo June 2017: Mild concentric left ventricular hypertrophy EF 55 to 60%, mild MV regurg, moderate left atrial enlargement Previous hypercoagulability work-up negative-not repeated Monitor closely on telemetry CKD 3 BUN/creatinine 22/1.7 -baseline creatinine 1.5-1.7 per record review On normal NS 125 cc/h Continue to monitor BMP Hypertension Continue losartan Anxiety Continue home hydroxyzine and fluoxetine GERD Continue home omeprazole Overactive bladder/BPH Hold home doxazosin in the setting of right heart strain to preserve preload Code: Full DVT prophylaxis: Heparin gtt Dispo: PCU telemetry (2) HTN (hypertension): (3) BPH (benign prostatic hyperplasia): (4) Overactive bladder: (5) CKD (chronic kidney disease) stage 3, GFR 30-59 ml/min: (6) GERD (gastroesophageal reflux disease): (7) Anxiety: History of Present Illness Chief Complaint: Chest pain Primary Care Provider: Juan Carlos Vital 63-year-old male with previous history of PE in June 2017 status post right shoulder replacement surgery presents with chest pain x6 days. Associated with shortness of breath, lightheadedness, nausea, diarrhea. Patient reports traveling to [place] 9 days ago. He had left calf soreness prior to going to [place] which improved while he was in [place] however he developed chest pain 6 days ago while he was in [place]. He traveled back to [place] 3 days ago. Chest pain is in the middle of his chest, constant and does not radiate to his neck, jaw, arms, or back. He denies any fever, chills, headache, abdominal pain, vomiting, paresthesias. Past medical history: PE in June 2017 treated with Xarelto in the setting of right shoulder replacement surgery, hypertension, CKD 3, BPH, anxiety, overactive bladder Past surgical history: Right shoulder replacement Social history: Denies ever smoking, denies alcohol use or recreational drug use Family history: Mother had stroke at age 90 Father is healthy and siblings are healthy too Allergies Allergy/AdvReac Type Severity Reaction Status Date / Time alprazolam Allergy Unknown hives Verified 01/14/19 00:17 Home Medications Home Medications Medication Instructions Recorded Confirmed Type doxazosin 8 mg PO HS 01/13/19 01/13/19 History hydroxyzine HCl 25 mg PO HS PRN 01/13/19 01/13/19 History losartan 12.5 mg PO DAILY 01/13/19 01/14/19 History omeprazole 20 mg PO DAILY 01/13/19 01/13/19 History paroxetine HCl 20 mg PO DAILY 01/13/19 01/13/19 History Past Med/Surg History Medical History Abdominal pain (Acute) Arthritis, shoulder region (Acute) Diverticulosis (Acute) Knee pain (Acute) Popliteal cyst (Acute) Pulmonary embolism Family History Other No pertinent family history in first degree relatives Social History Preferred Language: [place] Communication Ability: Effective Claims Agent Right Of Way Required: No Beliefs That Will Affect Care: None Current Living Situation: Spouse Other Information That Helps Us Care for You: No Feels Safe at Home: Yes Safety Concerns: Feels Safe At This Time Smoking Status: Never smoker Hx Alcohol Use: No Hx Substance Use: No Review of Systems Review of Systems: As per HPI Physical Exam Physical Exam: General: In NAD Neuro: A&O x 4 HEENT: moist mucous membranes Pulm: CTAB equal breath sounds bilaterally CV: RRR, no m/r/g Abdomen: + BS, no TTP in all quadrants, non- distended LE: no LE edema, no calf TTP Results & Data Vital Signs (Past 12 Hours) Vital Signs Temp Pulse Pulse Resp BP BP Pulse Ox 01/14/19 00:12 77 19 155/103 H 97 01/13/19 23:33 88 97 01/13/19 23:05 36.8 C 97 H 20 153/93 H 96 Laboratory Results Abnormal lab results 01/13/19 01/13/19 01/13/19 Range/Units 23:21 23:21 23:21 RBC 4.38 L (4.7-6.1) M/uL Hgb 13.4 L (14.0-18.0) g/dL Hct 39.4 L (42-52) % RDW Std Deviation 47.1 H (36.4-46.3) fL [place] # (Auto) 0.76 H (0.11-0.59) K/uL D-Dimer 5040 H* (0-500) ug/L FEU Chloride 108 H (98-107) mmol/L BUN 22 H (7-18) mg/dl Creatinine 1.72 H (0.6-1.4) mg/dl Glucose 112 H (70-99) mg/dl Albumin 3.1 L (3.4-5.0) gm/dl Albumin/Globulin Ratio 0.8 L (0.9-2) Diagnostic Findings Abnormal lab results 01/13/19 01/13/19 01/13/19 Range/Units 23:21 23:21 23:21 RBC 4.38 L (4.7-6.1) M/uL Hgb 13.4 L (14.0-18.0) g/dL Hct 39.4 L (42-52) % RDW Std Deviation 47.1 H (36.4-46.3) fL [place] # (Auto) 0.76 H (0.11-0.59) K/uL D-Dimer 5040 H* (0-500) ug/L FEU Chloride 108 H (98-107) mmol/L BUN 22 H (7-18) mg/dl Creatinine 1.72 H (0.6-1.4) mg/dl Glucose 112 H (70-99) mg/dl Albumin 3.1 L (3.4-5.0) gm/dl Albumin/Globulin Ratio 0.8 L (0.9-2) Code Status & VTE Plan Code Status Full VTE Prophylaxis Plan VTE Prophylaxis will be ordered: Yes Supervising Physician Co-Signing Physician Notes Attending addendum: I have physically seen this patient, have supervised the medical residents activities, and agree with the H&P unless as otherwise noted. Assessment and Plan: Acute bilateral pulmonary emboli, left greater than right/right heart strain- The patient will be admitted to telemetry for serial cardiac enzymes, serial EKG's, cardiac rhythm monitoring and a 2-D echocardiogram with Dopplers. Order bilateral lower extremity venous Dopplers. Heparin drip. Hypercoagulable work-up. CKD stage III/hypertension- Creatinine today 1.7, with baseline 1.5-1.7. Continue losartan. Normal saline 125 mils per hour. Serial BMP and magnesium levels. Remainder of orders and notations as noted. PG Care Time/CCT Total # of Minutes Spent Total Time Spent with Patient: Total time spent is greater than 50% in coordination of care (as documented) at patient's floor/unit and/or counseling patient: Resident Activity Tracking Resident Involvement: Resident Care Provided Care Provided: Adult Hospital Medicine (1) Pulmonary embolism Acute cor pulmonale presence: without acute cor pulmonale Chronicity: acute Pulmonary embolism type: unspecified Qualified Code(s): I26.99 - Other pulmonary embolism without acute cor pulmonale
[2019-01-14] MEDS ORDERED: HEPARIN SOD 5,000 UNIT/0.5 ML VIAL ONE (02:15)
[2019-01-14] MEDS: Heparin Adult STANDARD Wt-Based Dextrose 5% 25,000 units/500 mL IV SCH ×3 (02:18→23:42)
[2019-01-14] MEDS ORDERED: ACETAMINOPHEN 325 MG TAB PO PRN (03:44)
[2019-01-14] MEDS: SODIUM CHLORIDE 0.9% 1000ML 1,000 ML IV SCH ×3 (03:56→19:33)
--- NOTE | 2019-01-14 07:03 | CT Scan Report ---
CT ANGIOGRAPHY OF THE CHEST, PULMONARY EMBOLUS PROTOCOL CLINICAL HISTORY: Chest pain. COMPARISON STUDY: Chest CT June 27, 2017 and chest radiograph January 13, 2019. TECHNIQUE: Following IV administration of 117 mL of Optiray-320, helical axial images of the chest we re obtained utilizing the pulmonary embolus protocol. Maximal intensity projections and sagittal and coronal reformats were viewed on an independent 3D workstation. IV contrast was administered withou t complication. Automated exposure control was utilized for the study. A dose lowering technique wa s utilized adhering to the principles of ALARA. FINDINGS: Extensive bilateral pulmonary emboli are noted. Specifically, emboli are noted within the left lower lobe pulmonary artery extending into multiple segmental branches. Emboli are noted within the segmental branches of the right lower lobe as well as within the left upper and right upper lobes . There is no pulmonary infarct. There is straightening of the interventricular septum. The heart is moderately enlarged. Extensive coronary artery calcification is present. There is no thoracic lymphad enopathy. Large hiatal hernia is noted.] Arthroplasty is noted. There are no suspicious pulmonary nod ules. Upper abdomen is unremarkable. IMPRESSION: 1. Extensive bilateral pulmonary emboli. Straightening of the interventricular septum raises the poss ibility of right heart strain. 2. Moderate cardiomegaly and extensive coronary artery calcification. 3. Large hiatal hernia. Electronically signed by: Reynaldo Fay M.D. 01/14/2019 7:01 AM
--- NOTE | 2019-01-14 07:08 | Ultrasound Report ---
ULTRASOUND BILATERAL LOWER EXTREMITY VENOUS CLINICAL HISTORY: Pulmonary embolus. COMPARISON STUDY: Bilateral lower extremity venous ultrasound dated 06/27/2017. TECHNIQUE: Real-time, grayscale, and color Doppler sonography of the deep veins of the right and left lower extremity was performed from the inguinal crease to the calf. Compression and augmentation wer e utilized. FINDINGS: There is no sonographic evidence of deep venous thrombosis identified in the right or left lower extremity. The common femoral, superficial femoral, and popliteal veins are patent and normally compressible bilaterally. The greater saphenous vein and the profunda femoris vein at the junction w ith the common femoral vein are clear in both legs. The visualized calf veins are patent bilaterally. A small popliteal cyst on the right measures 6.3 x 1.2 x 3.0 cm, and a popliteal cyst on the left me asures 5.9 x 2.0 x 3.7 cm. IMPRESSION: 1. There is no sonographic evidence of deep venous thrombosis identified in the right or left lower e xtremity. 2. Bilateral popliteal cysts. Electronically signed by: Amador Cid M.D. 01/14/2019 7:07 AM
--- NOTE | 2019-01-14 07:10 | XRay Report ---
SINGLE VIEW CHEST CLINICAL HISTORY: Atypical chest pain. FINDINGS: An AP, portable, upright chest radiograph is compared to chest x-ray and chest CT dated 06/27/2017. The examination is degraded by portable technique and patient rotation. There is a large hiat al hernia. The cardiomediastinal silhouette is unremarkable. There is mild bibasilar atelectasis. The lungs and pleural spaces are otherwise clear. No pneumothorax is seen. The bony thorax is grossly in tact. Advanced arthritic changes seen in the left shoulder. A right shoulder arthroplasty is in place . IMPRESSION: 1. There is no acute cardiopulmonary abnormality. 2. Large hiatal hernia. Electronically signed by: Amador Cid M.D. 01/14/2019 7:09 AM
[2019-01-14 08:12] LABS: Basophils # (auto) 0.03 K/uL (0-0.2); Basophils % (auto) 0.6 %; Eosinophils # (auto) 0.47 K/uL (0-0.5); Eosinophils % (auto) 8.6 %; Hematocrit (blood only) 35.9 % (42-52); Immature Granulocytes # (auto) 0.01 K/uL (0.00-0.02); Immature Granulocytes % (auto) 0.2 %; Lymphocytes # (auto) 1.46 K/uL (1.2-3.4); Lymphocytes % (auto) 26.8 %; Mean Corpuscular Hgb Conc 33.4 g/dL (32-36); Mean Corpuscular Volume 89.3 fL (80-100); Mean Platelet Volume 9.3 fL (7.4-10.4); Neutrophils # (auto) 2.87 K/uL (1.4-6.5); Neutrophils % (auto) 52.8 %; Platelet Count 150 K/uL (130-400); RDW Coefficient of Variation 14.3 % (11.5-14.5); RDW Standard Deviation 47.1 fL (36.4-46.3); Red Blood Count 4.02 M/uL (4.7-6.1); White Blood Count 5.44 K/uL (4.8-10.8)
[2019-01-14] MEDS: PANTOprazole 40 MG TAB PO SCH (08:15)
[2019-01-14] MEDS: LOSARTAN POTASSIUM 25 MG TAB PO SCH (08:15)
[2019-01-14] MEDS: PARoxetine HCl 20 MG TAB PO SCH (08:16)
[2019-01-14 08:31] LABS: Partial Thromboplastin Ratio 3.5
[2019-01-14 08:36] LABS: Partial Thromboplastin Time 95.7 Seconds (21.0-31.0)
[2019-01-14 08:45] LABS: BUN Creatinine Ratio 11.9 (10-20); Calcium 9.6 mg/dl (8.5-10.1); Creatinine Clr Calc Pharmacy 64.5 ml/min; Est GFR (African American) 50.1; Est GFR (Non-African American) 43.2; Potassium 3.9 mmol/L (3.5-5.1)
--- NOTE | 2019-01-14 11:29 | History & Physical Bridge Note ---
Date of Service January 14, 2019 History & Physical Bridge Note I have examined the patient, reviewed the History & Physical and in the interval since the performance of the History & Physical I have noted the following changes of clinical significance: patient feeling better overall, still with some chest tightness and dyspnea on exertion discussed recent symptoms, sounds like he had some possible symptoms of left leg DVT two weeks ago prior to going to [place] the calf pain and swelling in the left leg got a little worse but then went away started to have some mild chest tightness while still in [place] last week discussed treatment plan, keep on Heparin drip for today plan to change to Xarelto tomorrow and can go home recommended taking the rest of the week off from work echo done today, will follow up results but most likely to just show some right heart strain which is expected
[2019-01-14 16:18] LABS: Partial Thromboplastin Ratio 2.5
[2019-01-14 16:23] LABS: Partial Thromboplastin Time 66.6 Seconds (21.0-31.0)
[2019-01-14 22:57] LABS: Partial Thromboplastin Ratio 2.6
[2019-01-14 23:02] LABS: Partial Thromboplastin Time 69.3 Seconds (21.0-31.0)
[2019-01-15] MEDS: SODIUM CHLORIDE 0.9% 1000ML 1,000 ML IV SCH (03:30)
[2019-01-15 06:02] LABS: Partial Thromboplastin Ratio 2.5
[2019-01-15 06:13] LABS: Partial Thromboplastin Time 66.4 Seconds (21.0-31.0)
[2019-01-15] MEDS: LOSARTAN POTASSIUM 25 MG TAB PO SCH (07:49)
[2019-01-15] MEDS: PANTOprazole 40 MG TAB PO SCH (07:49)
[2019-01-15] MEDS: PARoxetine HCl 20 MG TAB PO SCH (07:50)
--- NOTE | 2019-01-15 08:57 | Discharge Summary ---
Date of Service January 15, 2019 Admission HPI Per Admitting Provider 63-year-old male with previous history of PE in June 2017 status post right shoulder replacement surgery presents with chest pain x6 days. Associated with shortness of breath, lightheadedness, nausea, diarrhea. Patient reports traveling to [place] 9 days ago. He had left calf soreness prior to going to [place] which improved while he was in [place] however he developed chest pain 6 days ago while he was in [place]. He traveled back to [place] 3 days ago. Chest pain is in the middle of his chest, constant and does not radiate to his neck, jaw, arms, or back. He denies any fever, chills, headache, abdominal pain, vomiting, paresthesias. Past medical history: PE in June 2017 treated with Xarelto in the setting of right shoulder replacement surgery, hypertension, CKD 3, BPH, anxiety, overacti ve bladder Past surgical history: Right shoulder replacement Social history: Denies ever smoking, denies alcohol use or recreational drug use Family history: Mother had stroke at age 90 Father is healthy and siblings are healthy too Admission Exam Per Admitting Provider General: In NAD Neuro: A&O x 4 HEENT: moist mucous membranes Pulm: CTAB equal breath sounds bilaterally CV: RRR, no m/r/g Abdomen: + BS, no TTP in all quadrants, non- distended LE: no LE edema, no calf TTP Principal Diagnosis Bilateral pulmonary embolism, unprovoked Discharge Exam Constitutional WD/WN, vitals as above Eyes PERRL, conjunctivae normal, anicteric sclerae ENMT external ear and nose normal, oropharynx normal Neck trachea midline, no thyromegaly Respiratory normal respiratory effort, lungs clear to auscultation Cardiovascular RRR, no murmur, no edema Gastrointestinal (Abdomen) normal bowel sounds, soft, nontender, no hepatosplenomegaly Musculoskeletal no cyanosis or clubbing, extremities motor strength 5/5 Skin no rashes, warm and dry Neurologic patellar DTR's 2+ bilat, sensation intact and PERRL, EOMI, accommodation nl, no face palsy, no dysarthria Psychiatric A+Ox3, euthymic affect Lymphatic no cervical or axillary lymphadenopathy Discharge Data Allergies Allergy/AdvReac Type Severity Reaction Status Date / Time alprazolam Allergy Unknown hives Verified 01/14/19 00:17 Consultations 01/14/19 01:08 ED Decision to Admit Stat Ordered Studies 01/14/19 00:20 CT angio chest PE protocol Urgent 01/14/19 02:22 US venous doppler [facility] Urgent Hospital Course (1) Pulmonary embolism: bilateral, unprovoked has history of pulmonary embolism over a year ago that was after shoulder surgery the PE is submassive, blood pressure stable throughout echocardiogram shows normal EF, normal RV function venous doppler bilaterally negative for DVT treated initially with heparin drip transition to Xarelto 15mg BID x 21 days and then 20mg daily discussed with patient that he will now require lifelong anticoagulation since this is his second episode (2) HTN (hypertension): BP stable, continue home regimen (3) BPH (benign prostatic hyperplasia): continue on Doxazosin (4) Overactive bladder: (5) CKD (chronic kidney disease) stage 3, GFR 30-59 ml/min: (6) GERD (gastroesophageal reflux disease): continue PPI (7) Anxiety: continue Paxil Total Time Total Time Spent Total Time Spent (In Minutes): 35 minutes Total Time Includes: Examination of the Patient, Discharge Planning and Medication Reconciliation Discharge Plan Discharge Items Patient Disposition: Home - Self-Care Reason For Visit: CHEST PAIN, SOB Discharge Diagnosis: Bilateral pulmonary embolism Condition: Good Discharge Goals: Improve disease control and Improve function Activity: Resume your previous activity Non-emergency contact: Primary Care Provider Call non-emergency contact if: you have any medication questions, your symptoms worsen and you have a fever Follow-up/Referrals: Juan Carlos Vital [Primary Care Provider] - 01/24/19 12:50 pm (follow up appointment with your primary care physician) Diet: Regular Addtl Provider Instructions: Medications: - XARELTO: take 15mg twice a day for 21 days and then start on 20mg daily, take this indefinitely Bilateral pulmonary embolism likely had a left leg DVT due to the symptoms you were experiencing when flying to [place], however, at this time there is no evidence of DVT in either leg your vitals are stable, no need for oxygen will place you back on Xarelto, you will now need this for the rest of your life due to second pulmonary embolism as we discussed, you will likely experience the symptoms of some chest pain and shortness of breath for the next 1-2 weeks take the rest of the week off from work FOLLOW UP - Dr. Vital in one week, call for appointment Prescriptions: New Xarelto 15 mg Tablet 15 mg PO BID 21 Days Qty: 42 RF: 0 Xarelto 20 mg Tablet 20 mg PO QDD 30 Days Qty: 30 RF: 3 Continued doxazosin 8 mg tablet 8 mg PO HS RF: 0 paroxetine HCl 20 mg tablet 20 mg PO DAILY RF: 0 losartan 25 mg tablet 12.5 mg PO DAILY RF: 0 omeprazole 20 mg capsule,delayed release(DR/EC) 20 mg PO DAILY RF: 0 hydroxyzine HCl 25 mg tablet 25 mg PO HS PRN (Reason: Anxiety) RF: 0 Stand-Alone Forms: Call Back Authorization, [facility], Work/School Release (Inpt) Discharge Orders: Discharge Order (Routine); Ordered 01/15/19 Ordered By: Anant Luna Admission Data Admit Date/Time: 01/14/19 02:15 Attending Provider: Anant Luna Admit Provider: Vikram Cervantes Primary Care Provider: Juan Carlos Vital Other Providers: Vikram Cervantes Service: Telemetry Other Interventions: Discharge Summary Assessment (RN) Last Done: 01/15/19 10:25 DC Date/Time DO NOT enter until pt leaves facility: 01/15/19 11:19
[2019-01-15] MEDS ORDERED: RIVAROXABAN 15 MG TAB PO SCH (09:00)
[2019-02-05] MEDS ORDERED: RIVAROXABAN 20 MG TAB PO SCH (16:30)
== END 2019-01-15 11:19 | disposition home or self-care (01) | DRG 176 ==
LOC: ED 23:03 → 2S 01-14 02:15 → SUATTDRO 01-14 02:15 → 2S 01-14 02:36